=== PATIENT | female | born 1945 | race Caucasian/White ===

== ENCOUNTER 2021-01-16 10:59 | Inpatient (IN) | payer OTHER ==
--- OUTSIDE RECORDS SUMMARY | 2021-01-16 11:01 | XMS REPORT | Continuity of Care Document ---
:1945 Author Organization [facility] t Address [address] [place] [address] Care Team Providers Name Role Phone OKPALA Attending Clinician Unavailable Problems Condition Condition Condition Status Onset Resolution Last Treating Co mments Source Name Details Category Date Date Treatment Clinician Date Palpitatio Palpitatio Problem Active [facility] n [facility] [place] [facility] History of History of Problem Resolve [facility] arthritis arthritis d [facility] [place] [facility] Acute Acute Problem Active Univers right MCA right MCA ity of stroke stroke [place] [facility] Essential Essential Problem Active Uni vers (primary) (primary) [place] hypert[place] [facility] Depression Depression Problem Active U nivers screen screen [facility] [place] [facility] Encounter Encounter Problem Active Uni vers for [place] examin[place] examin[place] Ph ysici n for n for ans other other mental mental health and health and behavioral behavioral disorders disorders Primary Primary Problem Active [facility] osteoarthr osteoarthr Felicita kes - itis itis Memoria involving involving l multiple multiple Outpat i joints joints ent Clinics Bilateral Bilateral Problem Active [facility] primary primary [facility] - osteoarthr osteoarthr Me moria itis of itis of l knee knee Outpati ent Clinics Dupuytren' Dupuytren' Problem Active [facility] - contractur contractur Me moria e of left e of left l hand hand Outpati ent Clinics Arthritis Arthritis Problem Active [facility] - Memoria l [facility]pat[facility] ent Clinics Cigarette Cigarette Diagnosis Active [facility] nicotine nicotine [facility] - dependence dependence Me moria without without l complicati complicati Ou tpati on on ent Clinics Seasonal Seasonal Problem Active [facility] allergic allergic [facility] - rhinitis, rhinitis, Sandip ashlee unspecifie unspecifie l d trigger d trigger Outp ati ent Clinics Blood Blood Diagnosis Active [facility] tests for tests for Luke s - routine routine Memoria general general l physical physical Outpat i examinatio examinatio en t n n Clinics Breast Breast Diagnosis Active [facility] screening screening Luke s - declined declined Memori a l [facility] Pneumococc Pneumococc Diagnosis Active [facility] al al [facility] - vaccinatio vaccinatio Me moria n declined n declined l [facility] Tobacco Tobacco Diagnosis Active [facility] abuse abuse [facility] - counseling counseling [facility] Allergies, Adverse Reactions, Alerts Allergy Allergy Status Severity Reaction(s) Onset Inactive Treating Comm ents Source Name Type Date Date Clinician Penicill Allergy Active Univers ins to drug ity of (finding [place] ) Physici ans penicill Adverse Active rash/hives [facility] in Reaction [facility] Medications Ordered Filled Start Stop Current Ordering Indication Dosage Frequency Signature Comments Components Source Medication Medication Date Date Medication? Clinician (SIG) Name Name Atorvastati Atorvastati Yes TAKE 1 Univers n Calcium n Calcium 4-19 TABLET BY ity of 80 MG Oral 80 MG Oral 00:00: MOUTH AT [place] Tablet Tablet 00 BEDTIME Physici ans Aspirin 81 Aspirin 81 Yes TAKE ONE Univers MG Oral MG Oral 4-19 TABLET BY ity of Tablet Tablet 00:00: MOUTH [place] Delayed Delayed 00 DAILY Physici Release Release ans Vicodin Vicodin Yes Na [place] [address] as needed [facility] Vital Signs Vital Name Observation Time Observation Value Comments Source Body height 2020-12-25 66 [in_us] [facility] :22:00 [place] [facility] s Weight 2020-12-25 149 [lb_av] [facility] :22: [place] [facility] s Body mass index 2020-12-25 24.05 kg/m2 [place] o f (BMI) [Ratio] 10:22:00 [place] Physicia ns Body temperature 2020-12-25 97.2 [degF] Method: [facility] 10:22:00 [facility] Physician s Heart Rate 2020-12-25 64 /min [facility] :22:00 [place] Physician s Respiratory rate 2020-12-25 18 /min [facility] 10:22:00 [place] Physician s O2 SAT 2020-12-25 99 % [facility] 10:22:00 [place] [facility] s Systolic blood 2020-12-25 129 mm[Hg] Location: [facility] 10:22:00 Position: [place] Physician s Sitting Diastolic blood 2020-12-25 78 mm[Hg] Location: [facility]; [facility] 10:22:00 Position: [place] Physician s Sitting Procedures Procedure Date / Time Performed Performing Clinician Ileana e [N] 30 Day Event 2020-12-26 00:00:00 [facility] Monitor Recording Physicians Plan of Care Planned Activity Planned Date Details Comments Source Diagnostic Test 2020-12-26 [N] 30 Day Event [facility] Pending 00:00:00 Monitor Recording Physicians [code = [N] 30 Day Event Monitor Recording] Encounters Start End Encounter Admission Attending Care Care Encounter Source Date/Time Date/Time Type Type Clinicians Facility Department ID 2020-12-25 2020-12-25 Appointmen ONELIA KAHN Neurology - [id number] [facility] 10:30:00 10:30:00 t; [facility]AHN [place] [facility] 2019-08-24 2019-08-24 [facility] [id number] [facility] 11:00:00 11:00:00 [facility] 2019-08-16 2019-08-16 [facility] [id number] [facility] 16:37:00 16:37:00 [employer] [facility] 2019-05-25 2019-05-25 [facility] [id number] [facility] 10:20:00 10:20:00 [employer] [facility] Results This patient has no known results.
--- NOTE | 2021-01-16 12:07 | RAD REPORT ---
EXAM DESCRIPTION: CT - Head C Spine Mpr Wo Con - 01/16/2021 11:39 am CLINICAL HISTORY: Confusion. Head and neck pain COMPARISON: None. TECHNIQUE: Computed axial tomography of the head and cervical spine was obtained. Sagittal and coronal reconstruction was performed. All CT scans are performed using dose optimization technique as appropriate and may include automated exposure control or mA/KV adjustment according to patient size. FINDINGS: 5 centimeter low-density area within right temporal lobe has the appearance of an old infa rction. An intracranial bleed is not seen. The ventricles are normal in caliber. An extra-axial fluid collect ion is not noted.Fluid within the visualized sinuses and mastoids is not seen The patient's head is tilted towards the right. Slight posterior subluxation C3 on C4. Spondylosis involves the mid distal cervical spine resulting m arked right foraminal stenosis C3-4 and moderate foraminal stenosis at several additional levels. Mil d central spinal stenosis A cervical fracture is not visualized. No dislocation is noted. IMPRESSION: No acute intracranial abnormality is seen. A cervical fracture is not visualized. Spondylosis. If the patient continues to have symptoms to suggest intracranial /spinal cord pathology then MRI wou ld be recommended
--- NOTE | 2021-01-16 12:20 | RAD REPORT ---
EXAM DESCRIPTION: Harjit Single View01/16/2021 12:11 pm CLINICAL HISTORY: Chest pain COMPARISON: none FINDINGS: The lungs appear clear of acute infiltrate. The heart is normal size IMPRESSION: No acute abnormalities displayed
[2021-01-16 13:25] LABS: Urine Blood 1+ (Negative); Urine Glucose Negative (Negative); Urine Protein 1+ (Negative); Urine Specific Gravity >=1.030 (1.005-1.030); Urine pH 5.5 (5.0-7.0)
--- NOTE | 2021-01-16 14:41 | RAD REPORT ---
EXAM DESCRIPTION: CT - Chest Abdomen Pelvis W Cont - 01/16/2021 2:19 pm CLINICAL HISTORY: TRAUMA, chest pain, abdominal pain chest COMPARISON: No comparisons TECHNIQUE: Following dynamic enhancement using 100 milliliters nonionic IV contrast, axial imaging o f the chest, abdomen and pelvis was performed. Biphasic technique was utilized through the abdomen. No oral contrast was administered. All CT scans are performed using dose optimization technique as appropriate and may include automated exposure control or mA/KV adjustment according to patient size. FINDINGS: Lungs are clear of mass and infiltrate. Subpleural scarring changes are present. No pleura l effusion, pleural thickening or pneumothorax. No significant aortic or pulmonary arterial tree find ing. Mediastinal and hilar regions show no mass or abnormal lymphadenopathy. No chest wall mass or ax illary lymphadenopathy. The liver, spleen and pancreas show no suspicious findings. Gallbladder and biliary tree are unremark able. Gallstones can be occult on CT imaging. Symmetric renal function is seen with no mass or hydro nephrosis. No adrenal abnormalities. No urinary bladder acute finding. No dilated bowel loops or focal bowel wall thickening. No acute GI findings seen. Disc and bone degenerative changes are present. No acute fracture changes confirmed. No significant vascular findings. IMPRESSION: CT chest, abdomen and pelvis imaging shows no acute or emergent finding.
[2021-01-16 14:50] LABS: Absolute Lymphocytes (CBC) 1.4 K/uL (0.7-4.9); Basophils % 0.3 % (0-1.3); Hematocrit 47.5 % (36.0-45.0); MPV 9.8 fL (7.6-11.3); RBC Red Blood Cell Count 5.17 M/uL (3.86-4.86)
[2021-01-16 14:51] LABS: Protime INR 1.01
[2021-01-16 15:08] LABS: Bilirubin Direct 0.3 mg/dL (0-0.2); Bilirubin Total 0.8 mg/dL (0.2-1.0); Magnesium 2.5 mg/dL (1.8-2.4); Potassium 3.8 mmol/L (3.5-5.1); Protein, Total 8.1 g/dL (6.4-8.2); Troponin (Emerg Dept Use Only) 0.06 ng/mL (0.0-0.045)
[2021-01-16] MEDS ORDERED: NA CHLORIDE 0.9% 500 ML ONE (15:44)
--- NOTE | 2021-01-16 16:16 | P.HP ---
Certification for Inpatient Patient admitted to: Inpatient With expected LOS: >2 Midnights Practitioner: I am a practitioner with admitting privileges, knowledge of patient current condition, hospital course, and medical plan of care. 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 Was brought in to ER today, found awake on floor at home. Friend has been trying to get a hold of patient since Friday with no luck. Friend called police for wellfare check and patient was found on floor. Presumed to be on floor since Friday/Friday. Patient is oriented x3, however has some confusion and unable to recall events. She does not recall how she fell or can give specific details over the last 2-3 days. She reports pain in her knees (chronic) and neck. She denies any recent illness, no fever, no cough, no SOB, no dysuria, no diarrhea. She reports some constipation - no BM in ~3-4 days. She was reportedly discharged to rehab ~4-5 weeks ago, and signed herself out AMA due to being "bored". Patient appears dehydrated on exam. Bloodwork notable for leukocytosis and elevated hemoglobin (17.5, 15.7,respectively), Cr: 0.99, CPK: 1988, trop: 0.06, BNP 1361, Urine dip negative for infection, +blood, micro pending. CXR and CT chest/abd/pelvis rather unremarkable. CT head/c-spine notable for prior infarct. - Past Medical/Surgical History -: Knee arthritis -: recent CVA ~5wks ago, L weakness -: - Family History Family History: Reviewed- Non-Contributory - Social History Smoking Status: Current every day smoker Alcohol use: Yes Place of Residence: Home Review of Systems 10-point ROS is otherwise unremarkable Physical Examination - Physical Exam General: Alert, Oriented x3, Cooperative, Mild distress, Confused (makes sense during most of interview, but occasionally seems to answer inappropriately) HEENT: PERRLA, Other (dry mucous membranes), EOMI, Sclerae nonicteric Neck: Supple, No LAD Respiratory: Clear to auscultation bilaterally, Normal air movement Cardiovascular: No edema, Regular rate/rhythm Gastrointestinal: Soft and benign, Non-distended, No tenderness Musculoskeletal: No tenderness Integumentary: Other (superficial abrasion and ecchymosis noted at R posterior leg and L shoulder) Neurological: Sensation intact, Other (L facial droop, difficult closing L eyelid), Abnormal strength (4-/5 on R extremities, 3/5 LUE/LLE, 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) - Studies Laboratory Data (last 24 hrs) 01/16/21 14:05: PT 11.6, INR 1.01 01/16/21 14:05: WBC 17.50 H, Hgb 15.7 H, Hct 47.5 H, Plt Count 317 01/16/21 14:05: Sodium 145, Potassium 3.8, BUN 18, Creatinine 0.99, Glucose 126 H, Magnesium 2.5 H, Total Bilirubin 0.8, AST 84 H, ALT 36, Alkaline Phosphatase 75 Assessment and Plan - Advance Directives Does patient have a Living Will: No Does patient have a Durable POA for Healthcare: No Physician Review Additional Text: Problem List unwitnessed Fall Acute encephalopathy, likely metabolic 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,LUE,LLE) Rhabdomyolysis b/l knee arthritis -difficult to obtain / confirm accurate HPI/med history -no acute findings on imaging, labs appear patient is heme concentrated due to dehydration / on floor for a few days -elevated CPK, renal function ok -will place gonzales for accurate I/O's -IVF @150ml/hr, monitor volume status closely , pt denies cardiac history -monitor renal function, consult nephrology if necessary -will obtain MRI brain to r/o any new stroke, pt with R sided weakness - states this can happen "sometimes" -PT and speech therapy consulted -lovenox for DVT prophylaxis -will likely need SNF/rehab on discharge -urine pending to r/o infection -monitor on telemetry VTE: lovenox Code: full Dispo: anticipate hospitalization ~2-3 days, likely will need snf/rehab Time Spent Managing Pts Care (In Minutes): 70
[2021-01-16 16:31] LABS: Urine Blood Trace-intact (Negative); Urine Glucose Negative (Negative); Urine Protein 1+ (Negative); Urine Specific Gravity >=1.030 (1.005-1.030); Urine pH 5.5 (5.0-7.0)
[2021-01-16] MEDS ORDERED: NA CHLORIDE 0.9% 1,000 ML ONE (18:02)
--- NOTE | 2021-01-16 18:10 | RAD REPORT ---
EXAM DESCRIPTION: MRI - Brain W/Wo Cont - 01/16/2021 5:42 pm CLINICAL HISTORY: h/o CVA 5 weeks ago, no R weakness COMPARISON: MRA Head Wo Cont dated 01/16/2021; MRA Neck W/Wo Cont dated 01/16/2021; Head C Spine Mpr W o Con dated 01/16/2021 TECHNIQUE: Sagittal and axial T1-weighted images were obtained. Axial PD/heavily T2-weighted and T2- FLAIR images were obtained along with axial DWI/ADC mapping sequences. Coronal heavily T2 weighted s equence obtained. Axial and coronal post-contrast T1-weighted images were also obtained. A 16 ml Mul tihance contrast following utilized. FINDINGS: No intracranial hemorrhage identified. Mild to moderate underlying atrophy changes are pre sent. Ventricles are in proportion to any volume loss. Diffusion-weighted imaging shows hyperintense signal in the deep periventricular white matter posterior right frontal lobe. There is a extensive di ffusion signal abnormality in the right parietal lobe from cortical margin to the deep periventricula r white matter. Heterogeneous diffusion signal extends into the posterior aspect of the right tempora l lobe. There is corresponding increased signal on ADC mapping. This subacute infarction pattern does not clearly demonstrate an acute component. Baseline chronic ischemic pattern for the patient is louis y minimal. There is no edema or shift of midline structures. No extra-axial fluid collections. Paulino-m atter/white matter junction is preserved. Signal voids are seen as a normal finding in the major int racranial vessels. There are old infarction changes in the right parietal lobe as well. Post-contrast view show a serpiginous cortical enhancement pattern in the area of subacute infarction . This is expected pattern based on the provided history. Mastoid air cells and paranasal sinuses are clear. No sella or supra sella abnormality. IMPRESSION: Subacute and chronic nonhemorrhagic infarction changes involving the right cerebral gabe sphere as detailed. No new acute component identified. No developing edema or mass effect.
--- NOTE | 2021-01-16 18:13 | RAD REPORT ---
EXAM DESCRIPTION: MRI - MRA Head Wo Cont - 01/16/2021 5:41 pm CLINICAL HISTORY: CVA, new stroke-like symptoms COMPARISON: CT head same date, MRI brain same date TECHNIQUE: Axial and coronal 3D [id number] image acquisition was performed. 3D rotational images were generated with source and reconstruction images reviewed. Horizontal and vertical axis rotation al views generated using MIP protocol. FINDINGS: Basilar artery shows no suspicious finding. Distal left vertebral artery is unremarkable. The right vertebral artery terminates at the posteroinferior cerebellar artery. Moderate severity ath erosclerotic changes are present with luminal narrowing in the bilateral posterior cerebral artery di stributions. Moderate severity left middle cerebral atherosclerotic changes are present. There is randell ncation of multiple M2 and M3 branches of the right middle cerebral artery. This would match with the areas of right cerebral hemisphere infarction. No significant anterior cerebral artery disease. The A1 segment of the right anterior cerebral artery is very small suspected to be normal variant. No significant distal Internal carotid abnormality. 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 This would match the large areas of infarction in the right middle cerebral artery distribution. No significant disease of the basilar artery or distal internal carotid arteries.
--- NOTE | 2021-01-16 18:15 | RAD REPORT ---
EXAM DESCRIPTION: MRI - MRA Neck W/Wo Cont - 01/16/2021 5:42 pm CLINICAL HISTORY: Right-sided CVA. New stroke-like symptoms COMPARISON: None. TECHNIQUE: Axial and coronal 3D [id number] image acquisition was performed. 3D rotational images were generated with source and reconstruction images reviewed. Horizontal and vertical axis rotation al views generated using MIP protocol. FINDINGS: Aortic arch is 3 vessel configuration with no origins stenosis. Vertebral artery origins a re poorly visualized due to motion artifact. Motion limits the proximal right common carotid artery a ssessment. Significant disease is doubtful. Left common carotid artery is unremarkable. The bilateral internal carotid arteries are mildly tortuous but show no significant disease. Left vertebral artery is dominant with the right vertebral artery terminating at the posteroinferior cerebellar artery. No acute vertebral finding. IMPRESSION: MRA neck examination as detailed shows no significant finding.
[2021-01-16 18:36] LABS: Urine Amorphous Sediment 1+ /HPF (NONE SEEN); Urine Bacteria 20-50 /HPF (<20); Urine RBC <5 /HPF (NONE SEEN)
[2021-01-16] MEDS: NA CHLORIDE 0.9% 1,000 ML IV SCH (21:38)
--- NOTE | 2021-01-16 21:47 | ER ---
Nurse's Notes [facility] Name: Nasir Khan Age: 76 yrs Sex: Female : 1945 Arrival Date: 01/16/2021 Time: 11:16 Bed 16 Private MD: Diagnosis: Altered mental status, unspecified;Fall from other furniture;Rhabdomyolysis Presentation: 01/16 11:33 Chief complaint: EMS states: Fall, AMS. Coronavirus screen: Client denies travel out of kg the [place] in the last 14 days. Ebola Screen: Patient negative for fever greater than or equal to 101.5 degrees Fahrenheit, and additional compatible Ebola Virus Disease symptoms Patient denies exposure to infectious person. Patient denies travel to an Ebola-affected area in the 21 days before illness onset. Initial Sepsis Screen: Does the patient meet any 2 criteria? Altered Mental Status. HR > 90 bpm. Yes Does the patient have a suspected source of infection? No. Patient's initial sepsis screen is negative. Risk Assessment: Do you want to hurt yourself or someone else? Patient reports no desire to harm self or others. Onset of symptoms is unknown. 11:33 Method Of Arrival: EMS: [facility] kg 11:33 Acuity: MACK 3 kg Triage Assessment: 11:35 General: Appears unkempt, clothes are soaked in urine. . Behavior is calm, cooperative, kg quiet, Smells of urine. Pain: Complains of pain in right leg and left leg Pain currently is 8 out of 10 on a pain scale. at worst was 10 out of 10 on a pain scale. level that patient reports is acceptable is 3 out of 10 on a pain scale. Quality of pain is described as aching. EENT: Eyes with exudate noted from right upper eyelid, right outer canthus, outer aspect of conjuctiva of right eye, iris of right eye, inner aspect of conjuctiva of right eye, right lower eyelid, left upper eyelid, left outer canthus, outer aspect of conjuctiva of left eye, iris of left eye, inner aspect of conjunctiva of left eye, left inner canthus and left lower eyelid Right eye matted shut, corner of left eye red and swollen appears to have hit it during call.. Neuro: Level of Consciousness is awake, alert, confused, Oriented to person, place, situation, Wheat Shipper are weak on left Weakness in left Pt had previous stroke with left sided deficits. . Cardiovascular: No deficits noted. Heart tones S1 S2. Respiratory: No deficits noted. Airway is patent Breath sounds are clear bilaterally. GI: No deficits noted. : incontent. Derm: Skin is fragile, is thin, with poor turgor has skin tears on Right inner thigh, Left shoulder, Left corner of eye. DTI to left hip that is closed. Musculoskeletal:. Historical: - Allergies: 11:35 PENICILLINS; kg - PMHx: 11:35 CVA; kg - Immunization history:: Unknown. - Social history:: Smoking status: unknown Patient uses alcohol, occasionally. admits to "couple of beers" a day. Screenin:28 Abuse screen: Denies threats or abuse. Nutritional screening: No deficits noted. kg Tuberculosis screening: No symptoms or risk factors identified. Fall Risk Fall in past 12 months (25 points). Secondary diagnosis (15 points) CVA, IV access (20 points). Ambulatory Aid- Crutches/Cane/Walker (15 pts). Gait- Impaired (20 pts.). Mental Status- Overestimates/Forgets Limitations (15 pts.). Total Rodriguez Fall Scale indicates High Risk Score (45 or more points). Fall prevention measures have been instituted. Side Rails Up X 2 Placed Close to Nursing Station Frequent Obs/Assessments Occuring Family Present and informed to notify staff if the need to leave the bedside As available patient and family educated on Fall Prevention Program and Strategies. Assessment: 11:42 Reassessment: See triage assessment. kg 12:34 Reassessment: Patients only contact is Manju Nelson a friend that checks on her. Manju wilson is the one that called the firmware architect to do a welfare check on the patient since she hadn't talked to her since Friday when she visited her. Manju stated that she was at [facility] when she decided to leave [place] and live at home by herself. She stated she also received the jade and allen covid vaccine there around December 18. Manju's number is [phone]. 19:30 Reassessment: Patient appears in no apparent distress at this time. Patient and/or ad1 family updated on plan of care and expected duration. Pain level reassessed. Patient is alert, oriented x 3, equal unlabored respirations, skin warm/dry/pink. General: Behavior is calm, cooperative. Pain: Denies pain. Neuro: Oriented to person, place, hallucinations noted.. Cardiovascular: Heart tones S1 S2. Respiratory: Airway is patent Trachea midline. GI: No signs and/or symptoms were reported involving the gastrointestinal system. : No signs and/or symptoms were reported regarding the genitourinary system. Musculoskeletal: weakness noted, limited rom to lower extremities Injury Description: bruising noted to L shoulder and face. 20:30 Reassessment: Patient appears in no apparent distress at this time. No changes from ad1 previously documented assessment. Patient and/or family updated on plan of care and expected duration. Pain level reassessed. Patient is alert, oriented x 3, equal unlabored respirations, skin warm/dry/pink. Vital Signs: 11:33 BP 145 / 94; Pulse 103; Resp 17; Temp 97.9(O); Pulse Ox 99% on R/A; Weight 72.57 kg; kg Height 5 ft. 6 in. (167.64 cm); 12:30 BP 161 / 97; Pulse 81; Resp 30; Pulse Ox 97% on R/A; kg 13:30 BP 159 / 91; Pulse 92; Resp 25; Pulse Ox 97% on R/A; kg 14:30 BP 167 / 84; Pulse 83; Resp 24; Pulse Ox 96% on R/A; kg 15:30 BP 165 / 86 RA Supine (auto/reg); Pulse 81; Resp 21; Pulse Ox 97% on R/A; kg 16:30 BP 151 / 85; Pulse 81; Resp 22; Pulse Ox 81% on R/A; kg 17:30 BP 159 / 90; Pulse 82; Resp 24; Pulse Ox 98% on R/A; kg 18:30 BP 143 / 79; Pulse 79; Resp 22; Pulse Ox 97% on R/A; kg 18:30 BP 139 / 81; Pulse 78; Resp 24; Pulse Ox 96% on R/A; kg 19:30 BP 130 / 83; Pulse 80; Resp 18; Pulse Ox 97% ; ad1 20:30 BP 147 / 85; Pulse 82; Resp 18; Pulse Ox 95% ; ad1 21:29 BP 148 / 88; Pulse 84; Resp 18; Pulse Ox 95% ; ad1 11:33 Body Mass Index 25.82 (72.57 kg, 167.64 cm) kg ED Course: 11:16 Patient arrived in ED. am2 11:18 Jazmin Freedman [facility]-C [facility]. kb 11:18 Rafita Bay MD is Attending Physician. kb 11:33 Danyelle Amos is Primary Nurse. kg 11:35 Triage completed. kg 11:39 CT Head C Spine In Process Unspecified. EDMS 12:11 XRAY Chest (1 view) In Process Unspecified. EDMS 12:20 Inserted saline lock: 20 gauge in left antecubital area, using aseptic technique. kg 12:27 Lactate Sent. kg 12:27 Procalcitonin Sent. kg 12:27 Procalcitonin Sent. kg 12:27 Lactate Sent. kg 12:27 Basic Metabolic Panel Sent. kg 12:27 CBC with Diff Sent. kg 12:27 Magnesium Sent. kg 12:27 LFT's Sent. kg 12:28 NT PRO-BNP Sent. kg 12:28 PT-INR Sent. kg 12:28 Troponin (emerg Dept Use Only) Sent. kg 12:28 Patient has correct armband on for positive identification. Allergy band placed. Fall kg risk band placed. Placed in gown. Bed in low position. Call light in reach. Side rails up X2. 14:20 CT Chest, Abdomen, Pelvis - W/Contrast In Process Unspecified. EDMS 15:27 Jameson Bay MD is Hospitalizing Provider. kb 17:42 MRA Head Wo Cont In Process Unspecified. EDMS 17:42 Brain W/Wo Cont In Process Unspecified. EDMS 17:42 MRA Neck W/Wo Cont In Process Unspecified. EDMS 05 02:52 No provider procedures requiring assistance completed. Patient admitted, IV remains in ad1 place. 02:55 Arm band placed on. ad1 Administered Medications: 01/16 15:47 Drug: NS 0.9% 500 ml Route: IV; Rate: bolus; Site: left antecubital; kg 16:18 Follow up: IV Status: Completed infusion; IV Intake: 500ml kg 16:19 Follow up: Response: No adverse reaction kg 17:00 Follow up: Response: No adverse reaction; IV Status: Completed infusion; IV Intake: kg 500ml 17:45 Follow up: Response: No adverse reaction; IV Intake: 500ml kg 18:00 Drug: NS 0.9% 1000 ml Route: IV; Rate: 125 ml/hr; Site: left antecubital; kg 18:52 Follow up: Response: No adverse reaction kg Intake: 16:18 IV: 500ml; Total: 500ml. kg 17:00 IV: 500ml; Total: 1000ml. kg 17:45 IV: 500ml; Total: 1500ml. kg Outcome: 15:27 Decision to Hospitalize by Provider. kb 21:30 Admitted to Med/surg accompanied by tech, via stretcher. ad1 21:30 Condition: stable 21:30 Instructed on report given to MIGUEL ANGEL Ni 21:46 Patient left the ED. ad1 Signatures: Dispatcher [employer] EDJazmin García FNP-C FNP-Darleen Palmer RN RN ad1 Violeta Ely am2 Danyelle Amos kg Corrections: (The following items were deleted from the chart) 21:29 21:29 Reassessment: Patient appears in no apparent distress at this time. No changes ad1 from previously documented assessment. Patient and/or family updated on plan of care and expected duration. Pain level reassessed. Patient is alert, oriented x 3, equal unlabored respirations, skin warm/dry/pink. ad1 21:29 20:30 BP 148 / 88; Pulse 84bpm; Resp 18bpm; Pulse Ox 95%; ad1 ad1
--- NOTE | 2021-01-16 21:47 | EDPHYS ---
Physician Documentation [facility] Name: Nasir Khan Age: 76 yrs Sex: Female : 1945 Arrival Date: 01/16/2021 Time: 11:16 Bed 16 Private MD: ED Physician Rafita Bay HPI: 01/16 15:46 This 76 yrs old Female presents to ER via EMS with complaints of Fall, AMS. kb 16:57 The patient presents with confusion. Onset: The symptoms/episode began/occurred today. kb Possible causes: CVA or TIA, fell off couch on Friday or Friday and couldn't get up. Associated signs and symptoms: Pertinent positives: confusion. Unable to obtain HPI due to altered mental status. It is unknown whether or not the patient has had similar symptoms in the past. CVA 5 weeks ago, treated at [facility]. Friend states she hasn't talked to pt since Friday or Friday. States she had been calling, but not getting through so today when she called and the voicemail box was full she knew something was wrong. Friend called the police to do a welfare check and pt was found on the floor. Pt states she had a beer, slipped off the couch and couldn't get back up. Pt understands and responds to some questions, but doesn't seem to understand others. Pt states she had a stroke 5 weeks ago. Friend reports pt signed herself out of the senior living that she went to after the stroke. Pt has residual left sided weakness, but normally gets around with shuffling gait per friend.. Historical: - Allergies: 11:35 PENICILLINS; kg - PMHx: 11:35 CVA; kg - Immunization history:: Unknown. - Social history:: Smoking status: unknown Patient uses alcohol, occasionally. admits to "couple of beers" a day. ROS: 16:54 MS/Extremity: Negative for injury and deformity, Neuro: Negative for headache, kb weakness, numbness, tingling, and seizure. 16:54 Unable to obtain ROS due to patient's inability to understand questions, pt understands some questions, but not all. Pt denies any other symptoms in ROM. Exam: 15:38 Cardiovascular: Regular rate and rhythm with a normal S1 and S2. No gallops, murmurs, kb or rubs. No pulse deficits. Respiratory: Respirations even and unlabored. No increased work of breathing, no retractions or nasal flaring. Abdomen/GI: Soft, non-tender. No distention Skin: Warm, dry with normal turgor. Normal color. 15:38 Constitutional: The patient appears alert, awake. 15:38 Musculoskeletal/extremity: Extremities: grossly normal except: noted in the anterior aspect of left shoulder: ecchymosis, ROM: no acute changes, Circulation is intact in all extremities. 15:38 Neuro: Orientation: to person, situation, Mentation: confused. 15:38 Psych: Behavior/mood is pleasant, Affect is calm, Oriented to person. Vital Signs: 11:33 BP 145 / 94; Pulse 103; Resp 17; Temp 97.9(O); Pulse Ox 99% on R/A; Weight 72.57 kg; kg Height 5 ft. 6 in. (167.64 cm); 12:30 BP 161 / 97; Pulse 81; Resp 30; Pulse Ox 97% on R/A; kg 13:30 BP 159 / 91; Pulse 92; Resp 25; Pulse Ox 97% on R/A; kg 14:30 BP 167 / 84; Pulse 83; Resp 24; Pulse Ox 96% on R/A; kg 15:30 BP 165 / 86 RA Supine (auto/reg); Pulse 81; Resp 21; Pulse Ox 97% on R/A; kg 16:30 BP 151 / 85; Pulse 81; Resp 22; Pulse Ox 81% on R/A; kg 17:30 BP 159 / 90; Pulse 82; Resp 24; Pulse Ox 98% on R/A; kg 18:30 BP 143 / 79; Pulse 79; Resp 22; Pulse Ox 97% on R/A; kg 18:30 BP 139 / 81; Pulse 78; Resp 24; Pulse Ox 96% on R/A; kg 19:30 BP 130 / 83; Pulse 80; Resp 18; Pulse Ox 97% ; ad1 20:30 BP 147 / 85; Pulse 82; Resp 18; Pulse Ox 95% ; ad1 21:29 BP 148 / 88; Pulse 84; Resp 18; Pulse Ox 95% ; ad1 11:33 Body Mass Index 25.82 (72.57 kg, 167.64 cm) kg MDM: 11:21 Patient medically screened. kb 15:37 Data reviewed: vital signs, nurses notes. Data interpreted: Pulse oximetry: on room air kb is 99 %. Interpretation: normal. Counseling: I had a detailed discussion with the patient and/or guardian regarding: the historical points, exam findings, and any diagnostic results supporting the discharge/admit diagnosis, lab results, radiology results, the need for further work-up and treatment in the hospital. 15:37 Physician consultation: Jameson Bay MD was contacted at 15:37, regarding admission, kb to the telemetry unit. patient's condition, and will see patient in ED. 01/16 11:19 Order name: Basic Metabolic Panel 01/16 11:19 Order name: CBC with Diff 01/16 11:19 Order name: LFT's 01/16 11:19 Order name: Magnesium 01/16 11:19 Order name: NT PRO-BNP 01/16 11:19 Order name: PT-INR 01/16 11:19 Order name: Troponin (emerg Dept Use Only) 01/16 11:19 Order name: CPK 01/16 11:20 Order name: Basic Metabolic Panel [facility] 01/16 11:20 Order name: CBC with Automated Diff; Complete Time: 14:56 [facility] 01/16 11:20 Order name: Liver (Hepatic) Function [facility] 01/16 11:20 Order name: Magnesium [facility] 01/16 11:20 Order name: NT PRO-BNP [facility] 01/16 11:20 Order name: Protime (+INR); Complete Time: 14:56 [facility] 01/16 11:19 Order name: CT Head C Spine; Complete Time: 12:09 01/16 11:19 Order name: XRAY Chest (1 view); Complete Time: 12:22 01/16 11:20 Order name: Troponin (Emerg Dept Use Only) [facility] 01/16 11:51 Order name: Lactate 01/16 11:51 Order name: Procalcitonin 01/16 11:52 Order name: Lactate; Complete Time: 15:15 [facility] 01/16 11:52 Order name: Procalcitonin; Complete Time: 16:45 [facility] 01/16 13:25 Order name: Urine Dipstick-Ancillary; Complete Time: 13:29 [facility] 01/16 13:31 Order name: CT Chest, Abdomen, Pelvis - W/Contrast; Complete Time: 14:46 kb 01/16 15:26 Order name: Urine Microscopic Only; Complete Time: 18:38 kb 01/16 16:30 Order name: Urine Dipstick-Ancillary; Complete Time: 16:35 EDAL 01/16 16:42 Order name: COVID-19 : Document "Date of Symptom Onset" if Symptomatic. aa5 01/16 16:58 Order name: MRA Head Wo Cont; Complete Time: 18:22 EDAL 01/16 19:01 Order name: Lactate Sepsis 2 HR Follow-up [facility] 01/16 20:10 Order name: SARS-COV-2 RT PCR EDAL 01/16 11:19 Order name: EKG; Complete Time: 11:20 kb 01/16 11:19 Order name: Cardiac monitoring; Complete Time: 12:27 kb 01/16 11:19 Order name: EKG - Nurse/Tech; Complete Time: 12:27 kb 01/16 11:19 Order name: IV Saline Lock; Complete Time: 12:27 kb 01/16 11:19 Order name: Labs collected and sent; Complete Time: 12:27 kb 01/16 11:19 Order name: O2 Per Protocol; Complete Time: 12:27 kb 01/16 11:19 Order name: O2 Sat Monitoring; Complete Time: 12:27 kb 01/16 11:20 Order name: Straight Cath - Urine 01/16 11:20 Order name: Urine Dipstick-Ancillary (obtain specimen) 01/16 12:08 Order name: Labs - recollect needed: recollect all labs; Complete Time: 12:27 01/16 16:58 Order name: Brain W/Wo Cont; Complete Time: 18:13 EDAL 01/16 16:58 Order name: MRA Neck W/Wo Cont; Complete Time: 18:22 EDMS Administered Medications: 15:47 Drug: NS 0.9% 500 ml Route: IV; Rate: bolus; Site: left antecubital; kg 16:18 Follow up: IV Status: Completed infusion; IV Intake: 500ml kg 16:19 Follow up: Response: No adverse reaction kg 17:00 Follow up: Response: No adverse reaction; IV Status: Completed infusion; IV Intake: kg 500ml 17:45 Follow up: Response: No adverse reaction; IV Intake: 500ml kg 18:00 Drug: NS 0.9% 1000 ml Route: IV; Rate: 125 ml/hr; Site: left antecubital; kg 18:52 Follow up: Response: No adverse reaction kg Disposition: 01/17 19:07 Co-signature as Attending Physician, Rafita Bay MD. rn Disposition: 01/16/21 15:27 Hospitalization ordered by Jameson Bay for Inpatient Admission. Preliminary diagnosis are Altered mental status, unspecified, Fall from other furniture, Rhabdomyolysis. - Bed requested for Telemetry/MedSurg (Inpatient). - Status is Inpatient Admission. ad1 - Condition is Fair. - Problem is new. - Symptoms are unchanged. Signatures: Dispatcher [employer] EDMS Jazmin Freedman, MANAGER PRICING-C MANAGER PRICING-CkTatyana Goodrich Martha, RN RN Rafita Bay MD MD rn DelToro, Anna, RN RN ad1 Danyelle Amos kg Corrections: (The following items were deleted from the chart) 01/16 16:56 15:43 Unable to obtain ROS due to patient's inability to understand questions, Pt kb understands some questions, but not others. Pt denies any symptoms in ROS, kb 16:58 16:09 Stroke Protocol ordered. EDAL EDMS 20:26 15:27 Hospitalization Ordered by Jameson Bay MD for Inpatient Admission. Preliminary mw diagnosis is Altered mental status, unspecified; Fall from other furniture; Rhabdomyolysis. Bed requested for Telemetry/MedSurg (Inpatient). Status is Inpatient Admission. Condition is Fair. Problem is new. Symptoms are unchanged. kb 21:46 20:26 01/16/2021 15:27 Hospitalization Ordered by Jameson Bay MD for Inpatient ad1 Admission. Preliminary diagnosis is Altered mental status, unspecified; Fall from other furniture; Rhabdomyolysis. Bed requested for Telemetry/MedSurg (Inpatient). Status is Inpatient Admission. Condition is Fair. Problem is new. Symptoms are unchanged. mw
[2021-01-16 22:16] VITALS: BMI 20.7
[2021-01-16 22:35] LABS: Thyroid Stimulating Hormone 0.727 uIU/mL (0.360-3.740)
[2021-01-16] MEDS ORDERED: PNEUMOCOCCAL VACCINE 0.5 ML IMVAC ONE (22:49)
[2021-01-17] MEDS: NA CHLORIDE 0.9% 1,000 ML IV SCH (02:03)
[2021-01-17 06:21] LABS: Absolute Lymphocytes (CBC) 1.6 K/uL (0.7-4.9); Basophils % 0.3 % (0-1.3); Hematocrit 37.7 % (36.0-45.0); Lymphocytes % 14.3 % (15.3-44.8); MPV 9.6 fL (7.6-11.3); RBC Red Blood Cell Count 4.08 M/uL (3.86-4.86)
[2021-01-17 06:53] LABS: ALT/SGPT 30 U/L (12-78); AST/SGOT 70 U/L (15-37); Alkaline Phosphatase 55 U/L (45-117); BUN Blood Urea Nitrogen 17 mg/dL (7-18); Bicarbonate 24 mmol/L (21-32); Bilirubin Total 0.7 mg/dL (0.2-1.0); Glucose Level 104 mg/dL (74-106); Magnesium 2.3 mg/dL (1.8-2.4); Phosphorus 2.6 mg/dL (2.5-4.9); Potassium 3.3 mmol/L (3.5-5.1); Protein, Total 6.3 g/dL (6.4-8.2); Sodium Level 147 mmol/L (136-145)
[2021-01-17 06:54] LABS: Creatine Phosphokinase 1455 U/L (26-192)
[2021-01-17] MEDS: ENOXAPARIN 40 MG/0.4 ML SQ SCH (07:41)
[2021-01-17] MEDS: ASPIRIN EC 81 MG TAB PO SCH (07:42)
[2021-01-17] MEDS: D5.45NS W/KCL 20MEQ 20 MEQ/1,000 ML BAG IV SCH ×2 (08:44→17:50)
[2021-01-17] MEDS ORDERED: POTASSIUM 25 MEQ EFFERV TAB PO ONE ×2 (09:00→18:00)
[2021-01-17] MEDS: Levofloxacin500mg IV 500 MG/100 ML BAG IV SCH (10:54)
[2021-01-17] MEDS: ACETAMINOPHEN 500 MG TAB PO PRN (11:03)
--- NOTE | 2021-01-17 14:47 | P.PN ---
Subjective Date of Service: 01/17/21 Chief Complaint: Rhabdomyolysis, Fall, AMS Subjective: Improving (feeling better, more energy / strength, but still very weak. states has nowhere to go. she spoke with her friend and would like to go to SNF/retirement if possible. Understands she requires assistance) Review of Systems 10-point ROS is otherwise unremarkable Physical Examination - Vital Signs Temperature: 97.7 F Blood Pressure: 145/63 Pulse: 93 Respirations: 19 Pulse Ox (%): 95 - Studies Laboratory Data (last 24 hrs) 01/16/21 14:05: PT 11.6, INR 1.01 01/16/21 14:05: WBC 17.50 H, Hgb 15.7 H, Hct 47.5 H, Plt Count 317 01/16/21 14:05: Sodium 145, Potassium 3.8, BUN 18, Creatinine 0.99, Glucose 126 H, Magnesium 2.5 H, Total Bilirubin 0.8, AST 84 H, ALT 36, Alkaline Phosphatase 75 Assessment & Plan Physician Review Additional Text: Physical Exam General: Alert, Oriented x3, Cooperative, NAD, weak voice HEENT: PERRL, dry mucous membranes, EOMI, Sclerae nonicteric Respiratory: Clear to auscultation bilaterally, Normal air movement Cardiovascular: No edema, Regular rate/rhythm Gastrointestinal: Soft and benign, Non-distended, No tenderness Musculoskeletal: No tenderness Integumentary: superficial abrasion and ecchymosis noted at R posterior leg and L shoulder Neurological: Sensation intact, L facial droop, difficult closing L eyelid, Abnormal strength (4+/5 on R extremities, 3/5 LUE/LLE, good secondary set up man bilaterally R>L) Problem List unwitnessed Fall Acute encephalopathy, likely metabolic 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,LUE,LLE) Rhabdomyolysis b/l knee arthritis Hypernatremia -difficult to obtain / confirm accurate HPI/med history, even after speaking with friend; pt has no family -no acute findings on imaging, labs appear patient is heme concentrated due to dehydration / on floor for a few days -elevated CPK improving, renal function improving with IVF, will change to D5 1/2NS due to hypernatremia -gonzales for accurate I/O's, will dc tomorrow morning -MRI brain without any new acute findings, shows subacute stroke - consistent with what pt reports she was diagnosed ~5 weeks ago -continue aspirin, statin; med records requested for medication list / findings -PT and speech therapy consulted -lovenox for DVT prophylaxis -needs SNF/rehab on discharge, hopefully patient will qualify -monitor on telemetry -urine partially concerning for UTI, will cover empirically with levaquin for now, may have contributed to weakness/fall VTE: lovenox Code: full Dispo: anticipate hospitalization ~1-2 days, likely will need snf/rehab patient agreeable. PT consulted. SW/CM consulted Time Spent Managing Pts Care (In Minutes): 35
[2021-01-17] MEDS: TRAMADOL HCL 50 MG TAB PO PRN (17:04)
[2021-01-17] MEDS: ATORVASTATIN 40 MG TAB PO SCH (21:37)
[2021-01-18] MEDS: D5.45NS W/KCL 20MEQ 20 MEQ/1,000 ML BAG IV SCH ×3 (02:29→13:21)
[2021-01-18 04:31] LABS: Absolute Lymphocytes (CBC) 1.9 K/uL (0.7-4.9); Basophils % 0.4 % (0-1.3); Hematocrit 29.6 % (36.0-45.0); Lymphocytes % 24.5 % (15.3-44.8); MPV 10.1 fL (7.6-11.3); RBC Red Blood Cell Count 3.23 M/uL (3.86-4.86)
[2021-01-18 04:38] LABS: BUN Blood Urea Nitrogen 9 mg/dL (7-18); Bicarbonate 26 mmol/L (21-32); Creatine Phosphokinase 929 U/L (26-192); Glucose Level 113 mg/dL (74-106); Potassium 4.3 mmol/L (3.5-5.1); Sodium Level 140 mmol/L (136-145)
[2021-01-18] MEDS: ENOXAPARIN 40 MG/0.4 ML SQ SCH (08:33)
[2021-01-18] MEDS: ASPIRIN EC 81 MG TAB PO SCH (08:33)
[2021-01-18] MEDS: TRAMADOL HCL 50 MG TAB PO PRN (08:45)
[2021-01-18] MEDS: Levofloxacin500mg IV 500 MG/100 ML BAG IV SCH (10:44)
--- NOTE | 2021-01-18 16:16 | P.PN ---
Subjective Date of Service: 01/18/21 Chief Complaint: Rhabdomyolysis, Fall, AMS Subjective: Improving (slightly more energy, moving R extremities more, regaining some strength back no acute events overnight.) Review of Systems 10-point ROS is otherwise unremarkable Physical Examination - Vital Signs Temperature: 97.5 F Blood Pressure: 115/61 Pulse: 58 Respirations: 18 Pulse Ox (%): 97 Assessment & Plan Physician Review Additional Text: Physical Exam General: Alert, Oriented x3, Cooperative, NAD, weak voice, slow to talk HEENT: PERRL, EOMI, Sclerae nonicteric Respiratory: Clear to auscultation bilaterally, Normal air movement Cardiovascular: No edema, Regular rate/rhythm Gastrointestinal: Soft and benign, Non-distended, No tenderness Musculoskeletal: No tenderness Integumentary: superficial abrasion and ecchymosis at R posterior leg and L shoulder Neurological: Sensation intact, mild L facial droop, mild difficult closing L eyelid, Abnormal strength (4+/5 on R extremities, 3/5 LUE/LLE, good public address system installer bilaterally R>L) Problem List unwitnessed Fall Acute encephalopathy, likely metabolic 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,LUE,LLE) Rhabdomyolysis b/l knee arthritis Hypernatremia -difficult to obtain / confirm accurate HPI/med history, even after speaking with friend; pt has no family -no acute findings on imaging, labs appear patient is heme concentrated due to dehydration / on floor for a few days -elevated CPK improving, renal function improving with IVF, dc IVF -gonzales for accurate I/O's, dc when patient moving a little better, likely tomorrow -MRI brain without any new acute findings, shows subacute stroke - consistent with what pt reports she was diagnosed ~5 weeks ago -continue aspirin, statin; med records requested for medication list / findings -PT and speech therapy consulted -lovenox for DVT prophylaxis -needs SNF/rehab on discharge, hopefully patient will qualify -monitor on telemetry -urine partially concerning for UTI, will cover empirically with levaquin for now, may have contributed to weakness/fall. f/u culture VTE: lovenox Code: full Dispo: anticipate hospitalization ~1-2 days, likely will need snf/rehab, needs to work more with PT patient agreeable. PT consulted. SW/CM consulted Time Spent Managing Pts Care (In Minutes): 35
[2021-01-18] MEDS: ATORVASTATIN 40 MG TAB PO SCH (20:30)
[2021-01-18] MEDS: ONDANSETRON 4 MG/2 ML VIAL IV PRN (20:30)
[2021-01-19 06:12] LABS: Absolute Lymphocytes (CBC) 1.6 K/uL (0.7-4.9); Basophils % 0.9 % (0-1.3); Lymphocytes % 23.2 % (15.3-44.8); RBC Red Blood Cell Count 3.58 M/uL (3.86-4.86)
[2021-01-19 06:21] LABS: ALT/SGPT 29 U/L (12-78); Albumin 2.3 g/dL (3.4-5.0); Alkaline Phosphatase 44 U/L (45-117); BUN Blood Urea Nitrogen 6 mg/dL (7-18); Bicarbonate 28 mmol/L (21-32); Bilirubin Total 0.4 mg/dL (0.2-1.0); Creatine Phosphokinase 721 U/L (26-192); Glucose Level 96 mg/dL (74-106); Protein, Total 5.1 g/dL (6.4-8.2); Sodium Level 140 mmol/L (136-145)
[2021-01-19 06:22] LABS: AST/SGOT 59 U/L (15-37); Magnesium 1.8 mg/dL (1.8-2.4); Potassium 4.4 mmol/L (3.5-5.1)
[2021-01-19] MEDS: ENOXAPARIN 40 MG/0.4 ML SQ SCH (08:46)
[2021-01-19] MEDS: ASPIRIN EC 81 MG TAB PO SCH (08:46)
[2021-01-19] MEDS: FOLIC ACID 1 MG TABLET PO SCH (08:46)
[2021-01-19] MEDS ORDERED: MAGNESIUM SULFATE 1 gm IVPB 1 GM/100 ML BAG IV ONE (09:00)
[2021-01-19] MEDS: TRAMADOL HCL 50 MG TAB PO PRN (10:39)
[2021-01-19] MEDS: Levofloxacin500mg IV 500 MG/100 ML BAG IV SCH (10:49)
--- NOTE | 2021-01-19 17:33 | P.PN ---
Subjective Date of Service: 01/19/21 Chief Complaint: Rhabdomyolysis, Fall, AMS Subjective: Improving (doing well, more energy/strength, but still very weak, tolerating PO) Review of Systems 10-point ROS is otherwise unremarkable Physical Examination - Vital Signs Temperature: 97.1 F Blood Pressure: 103/59 Pulse: 57 Respirations: 18 Pulse Ox (%): 93 Assessment & Plan Physician Review Additional Text: Physical Exam General: Alert, Oriented x3, Cooperative, NAD, weak voice, slow to talk HEENT: PERRL, EOMI, Sclerae nonicteric Respiratory: Clear to auscultation bilaterally, Normal air movement Cardiovascular: No edema, Regular rate/rhythm Gastrointestinal: Soft and benign, Non-distended, No tenderness Musculoskeletal: No tenderness Neurological: Sensation intact, Abnormal strength (4+/5 on R extremities, 3/5 LUE/LLE, good php mysql developer bilaterally R>L) Problem List unwitnessed Fall Acute encephalopathy, likely metabolic, resolved 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,LUE,LLE) Rhabdomyolysis b/l knee arthritis Hypernatremia -no acute findings on imaging, labs appear patient is heme concentrated due to dehydration / on floor for a few days -elevated CPK improving, renal function improving with IVF, dc'd IVF on 01/18 -dc gonzales today -MRI brain without any new acute findings, shows subacute stroke - consistent with what pt reports she was diagnosed ~5 weeks ago -continue aspirin, statin; med records requested for medication list / findings -PT and speech therapy consulted -lovenox for DVT prophylaxis -monitor on telemetry -urine partially concerning for UTI, will cover empirically with levaquin for now, may have contributed to weakness/fall. f/u culture VTE: lovenox Code: full Dispo: SW/CM consulted for group home/SNF, apparently patient has been working on this just prior to admission as well Time Spent Managing Pts Care (In Minutes): 35
[2021-01-19] MEDS: ONDANSETRON 4 MG/2 ML VIAL IV PRN (20:32)
[2021-01-19] MEDS: ATORVASTATIN 40 MG TAB PO SCH (20:36)
[2021-01-20 04:21] LABS: BUN Blood Urea Nitrogen 8 mg/dL (7-18); Bicarbonate 29 mmol/L (21-32); Glucose Level 101 mg/dL (74-106); Magnesium 1.9 mg/dL (1.8-2.4); Sodium Level 140 mmol/L (136-145)
[2021-01-20] MEDS: ENOXAPARIN 40 MG/0.4 ML SQ SCH (08:59)
[2021-01-20] MEDS: ASPIRIN EC 81 MG TAB PO SCH (09:00)
[2021-01-20] MEDS: Levofloxacin500mg IV 500 MG/100 ML BAG IV SCH (09:00)
[2021-01-20] MEDS: FOLIC ACID 1 MG TABLET PO SCH (09:00)
--- NOTE | 2021-01-20 11:26 | P.PN ---
Subjective Date of Service: 01/20/21 Chief Complaint: Rhabdomyolysis, Fall, AMS Subjective: Improving (feeling strength return each day, no new complaints. with weakness and requiring assistance to feed self at times. working with PT) Review of Systems 10-point ROS is otherwise unremarkable Physical Examination - Vital Signs Temperature: 97 F Blood Pressure: 129/63 Pulse: 57 Respirations: 18 Pulse Ox (%): 97 Assessment & Plan Physician Review Additional Text: Physical Exam General: Alert, Oriented x3, Cooperative, NAD, weak voice, slow to talk HEENT: PERRL, EOMI, Sclerae nonicteric Respiratory: Clear to auscultation bilaterally, Normal air movement Cardiovascular: No edema, Regular rate/rhythm Gastrointestinal: Soft and benign, Non-distended, No tenderness Musculoskeletal: No tenderness Neurological: Sensation intact, Abnormal strength (4+/5 on R extremities, 3/5 LUE/LLE, good filenet developer bilaterally R>L) Problem List unwitnessed Fall Acute encephalopathy, likely metabolic, resolved 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,LUE,LLE) Rhabdomyolysis, resolved b/l knee arthritis Hypernatremia, resolved -no acute findings on imaging, labs appear patient is heme concentrated due to dehydration / on floor for a few days -CPK improved, renal function improved with IVF - dc'd on 01/18 -voiding after gonzales removed, without issue -MRI brain without any new acute findings, shows subacute stroke - consistent with what pt reports she was diagnosed ~5 weeks prior to this admission -continue aspirin, statin; med records requested for medication list / findings - have not received yet -PT and speech therapy consulted -Lovenox for DVT prophylaxis -urine partially concerning for UTI, was covered empirically with levaquin, dc today, culture negative VTE: lovenox Code: full Dispo: SW/CM consulted for [facility]/SNF, apparently patient has been working on this just prior to admission as well patient does not have family around, unsafe to live alone, cannot care for herself at this time awaiting approvals Time Spent Managing Pts Care (In Minutes): 35
[2021-01-20] MEDS: ATORVASTATIN 40 MG TAB PO SCH (21:26)
[2021-01-20] MEDS: TRAMADOL HCL 50 MG TAB PO PRN (21:32)
[2021-01-21 05:04] LABS: RBC Red Blood Cell Count 3.73 M/uL (3.86-4.86)
[2021-01-21 05:05] LABS: Hematocrit 34.3 % (36.0-45.0); MPV 10.1 fL (7.6-11.3)
[2021-01-21 05:26] LABS: BUN Blood Urea Nitrogen 9 mg/dL (7-18); Bicarbonate 27 mmol/L (21-32); Creatine Phosphokinase 237 U/L (26-192); Glucose Level 95 mg/dL (74-106); Magnesium 1.9 mg/dL (1.8-2.4); Potassium 3.8 mmol/L (3.5-5.1); Sodium Level 137 mmol/L (136-145)
[2021-01-21] MEDS: ENOXAPARIN 40 MG/0.4 ML SQ SCH (09:00)
[2021-01-21] MEDS ORDERED: POTASSIUM CL SA 10 MEQ TAB PO ONE (09:00)
[2021-01-21] MEDS: FOLIC ACID 1 MG TABLET PO SCH (09:07)
[2021-01-21] MEDS: ASPIRIN EC 81 MG TAB PO SCH (09:07)
--- NOTE | 2021-01-21 09:48 | P.PN ---
Subjective Date of Service: 01/21/21 Chief Complaint: Rhabdomyolysis, Fall, AMS Subjective: No new changes (no significant events overnight. no new numbness/tingling. reports feels she is slowly improving daily. yesterday with some dizziness when she sat up, BP soft as well. voiding/stooling without issue) Review of Systems 10-point ROS is otherwise unremarkable Physical Examination - Vital Signs Temperature: 97.8 F Blood Pressure: 110/59 Pulse: 58 Respirations: 20 Pulse Ox (%): 95 Assessment & Plan Physician Review Additional Text: Physical Exam General: Alert, Oriented x3, Cooperative, NAD, appears frail HEENT: EOMI, Sclerae nonicteric Respiratory: Clear to auscultation bilaterally, Normal air movement Cardiovascular: No edema, Regular rate/rhythm Gastrointestinal: Soft and benign, Non-distended, No tenderness Musculoskeletal: No tenderness Neurological: Sensation intact, Strength (4+/5 on R extremities, 3/5 LUE/LLE, good scalehouse attendant bilaterally R>L) Problem List unwitnessed Fall Acute encephalopathy, likely metabolic, resolved 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,LUE,LLE) Rhabdomyolysis, resolved b/l knee arthritis Hypernatremia, resolved -MRI brain without any new acute findings, shows subacute stroke - consistent with what pt reports she was diagnosed ~5 weeks prior to this admission -no acute findings on imaging, labs appear patient is heme concentrated due to dehydration / on floor for a few days -CPK improved, renal function improved with IVF - dc'd on 01/18 -voiding after gonzales removed, without issue -continue aspirin, statin; med records requested for medication list / findings - have not received yet -PT and speech therapy consulted -Lovenox for DVT prophylaxis -urine partially concerning for UTI, was covered empirically with levaquin, discontinued since she denied symptoms/culture negative -soft BP and some dizziness when sitting up yesterday, will obtain orthostatic vitals, pt is eating ~75% of meals per EMR, may need gentle IVF VTE: lovenox Code: full Dispo: SW/CM consulted for [facility]/SNF, apparently patient has been working on this just prior to admission as well patient does not have family around, unsafe to live alone, cannot care for herself at this time needs [facility] placement Time Spent Managing Pts Care (In Minutes): 35
[2021-01-21] MEDS: DOCUSATE NA 100 MG CAP PO SCH ×2 (10:06→20:09)
--- NOTE | 2021-01-21 10:59 | RAD REPORT ---
EXAM DESCRIPTION: RAD - Abdomen 1 View (KUB) - 01/21/2021 10:51 am CLINICAL HISTORY: constipation, no BM several days Abdominal pain COMPARISON: Chest Abdomen Pelvis W Cont dated 01/16/2021 FINDINGS: Large stool volume is present filling but not dilating the colon from cecum the mid rectum level. This is slightly more prominent than the CT study though comparison between the 2 imaging mod alities is limited. Small bowel dilatation is not identified. There is no free air or pneumatosis. No bowel obstruction. Stomach is normal size. No suspicious calcifications. Moderate severity L4-5 disc and endplate degenerative changes noted. IMPRESSION: Constipation pattern with a large stool volume filling but not dilating the colon from c ecum to the mid rectum.
[2021-01-21] MEDS ORDERED: BISACODYL 10 MG RECTAL SUPP PR ONE (16:00)
[2021-01-21] MEDS: ATORVASTATIN 40 MG TAB PO SCH (20:09)
[2021-01-21] MEDS: TRAMADOL HCL 50 MG TAB PO PRN (20:12)
[2021-01-22 06:45] LABS: BUN Blood Urea Nitrogen 10 mg/dL (7-18); Bicarbonate 29 mmol/L (21-32); Glucose Level 96 mg/dL (74-106); Sodium Level 137 mmol/L (136-145)
[2021-01-22] MEDS: ASPIRIN EC 81 MG TAB PO SCH (09:17)
[2021-01-22] MEDS: DOCUSATE NA 100 MG CAP PO SCH ×2 (09:17→20:00)
[2021-01-22] MEDS: FOLIC ACID 1 MG TABLET PO SCH (09:17)
[2021-01-22] MEDS: ENOXAPARIN 40 MG/0.4 ML SQ SCH (09:18)
--- NOTE | 2021-01-22 15:55 | P.PN ---
Subjective Date of Service: 01/22/21 Chief Complaint: Rhabdomyolysis, Fall, AMS Subjective: No new changes (reports doing ok, strength slowly improving but still fairly weak, tolerating PO, no BM, +flatus, no abd pain/distention) Review of Systems 10-point ROS is otherwise unremarkable Physical Examination - Vital Signs Temperature: 97.2 F Blood Pressure: 133/63 Pulse: 67 Respirations: 16 Pulse Ox (%): 94 Assessment & Plan Physician Review Additional Text: Physical Exam General: Alert, Oriented x3, Cooperative, NAD, frail appearing, slow to talk HEENT: EOMI, Sclerae nonicteric Respiratory: Clear to auscultation bilaterally, Normal air movement Cardiovascular: No edema, Regular rate/rhythm Gastrointestinal: Soft and benign, Non-distended, No tenderness Musculoskeletal: No tenderness Neurological: Sensation intact, Strength (4+/5 on R extremities, 3/5 LUE/LLE) Problem List unwitnessed Fall Acute encephalopathy, likely metabolic, resolved 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,LUE,LLE) debility Rhabdomyolysis, resolved b/l knee arthritis Hypernatremia, resolved -MRI brain without any new acute findings, shows subacute stroke - consistent with what pt reports she was diagnosed ~5 weeks prior to this admission -no acute findings on imaging, labs appear patient is heme concentrated due to dehydration / on floor for a few days -CPK improved, renal function improved with IVF - dc'd on 01/18 -voiding after gonzales removed, without issue -continue aspirin, statin; med records requested for medication list / findings from recent hospitalization when she had acute CVA -PT and speech therapy consulted -Lovenox for DVT prophylaxis -urine partially concerning for UTI, was covered empirically with levaquin, discontinued since she denied symptoms and culture negative -pt is eating ~75% of meals per EMR, orthostatic (01/21) negative - done because patient reported some dizziness when sitting up with PT the day prior VTE: lovenox Code: full Dispo: SW/CM consulted for [facility]/SNF, apparently patient has been working on this just prior to admission as well patient does not have family around, unsafe to live alone, cannot care for herself at this time needs [facility] placement Time Spent Managing Pts Care (In Minutes): 35
[2021-01-22] MEDS: ATORVASTATIN 40 MG TAB PO SCH (20:00)
[2021-01-23] MEDS: ENOXAPARIN 40 MG/0.4 ML SQ SCH (09:00)
[2021-01-23] MEDS: FOLIC ACID 1 MG TABLET PO SCH (10:02)
[2021-01-23] MEDS: DOCUSATE NA 100 MG CAP PO SCH ×2 (10:02→20:42)
[2021-01-23] MEDS: ASPIRIN EC 81 MG TAB PO SCH (10:02)
--- NOTE | 2021-01-23 14:53 | P.PN ---
Subjective Date of Service: 01/23/21 Chief Complaint: Rhabdomyolysis, Fall, AMS Patient only able to sit at the edge of the bed during physical therapist today. She stated her oral intake has improved. Physical Examination - Vital Signs Temperature: 98.5 F Blood Pressure: 127/61 Pulse: 75 Respirations: 16 Pulse Ox (%): 97 - Physical Exam General: Alert, In no apparent distress, Oriented x3 HEENT: Mucous membr. moist/pink Neck: JVD not distended Respiratory: Clear to auscultation bilaterally, Normal air movement Cardiovascular: No edema, Regular rate/rhythm, Normal S1 S2 Gastrointestinal: Normal bowel sounds, Soft and benign, Non-distended Musculoskeletal: No swelling Integumentary: No rashes Neurological: Other (Mild left-sided weakness) Assessment And Plan Physician Review Additional Text: Problem List unwitnessed Fall Acute encephalopathy, likely metabolic, resolved 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,LUE,LLE) debility Rhabdomyolysis, resolved b/l knee arthritis Hypernatremia, resolved -MRI brain without any new acute findings, shows subacute stroke - consistent with what pt reports she was diagnosed ~5 weeks prior to this admission -no acute findings on imaging. -patient was dehydrated with hypernatremia and evidence of hemoconcentration on the CBC. -CPK and renal function improved. IV fluid discontinued. -voiding after gonzales removed, without issue -continue aspirin, statin. -continue PT and speech therapy -Lovenox for DVT prophylaxis -urine partially concerning for UTI, was covered empirically with levaquin, discontinued since she denied symptoms and culture negative VTE: lovenox Code: full Dispo: SW/CM assisting with SNF placement.
[2021-01-23] MEDS: ATORVASTATIN 40 MG TAB PO SCH (20:42)
[2021-01-24] MEDS: ENOXAPARIN 40 MG/0.4 ML SQ SCH (09:00)
[2021-01-24] MEDS: ASPIRIN EC 81 MG TAB PO SCH (09:25)
[2021-01-24] MEDS: DOCUSATE NA 100 MG CAP PO SCH ×2 (09:25→21:07)
[2021-01-24] MEDS: FOLIC ACID 1 MG TABLET PO SCH (09:25)
[2021-01-24] MEDS: TRAMADOL HCL 50 MG TAB PO SCH (16:14)
--- NOTE | 2021-01-24 17:09 | P.PN ---
Subjective Date of Service: 01/24/21 Chief Complaint: Rhabdomyolysis, Fall, AMS Patient currently has no complain. Physical Examination - Vital Signs Temperature: 97.9 F Blood Pressure: 127/58 Pulse: 68 Respirations: 15 Pulse Ox (%): 96 - Physical Exam General: Alert, In no apparent distress Neck: Supple Respiratory: Clear to auscultation bilaterally, Normal air movement Cardiovascular: No edema, Regular rate/rhythm, Normal S1 S2 Gastrointestinal: Soft and benign, Non-distended, No tenderness Musculoskeletal: No swelling, No tenderness Integumentary: No rashes Assessment And Plan Physician Review Additional Text: Problem List unwitnessed Fall Acute encephalopathy, likely metabolic, resolved 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,LUE,LLE) debility Rhabdomyolysis, resolved b/l knee arthritis Hypernatremia, resolved -MRI brain without any new acute findings, shows subacute stroke - consistent with what pt reports she was diagnosed ~5 weeks prior to this admission -no acute findings on imaging. -patient was dehydrated with hypernatremia and evidence of hemoconcentration on the CBC. Hypernatremia resolved. Leukocytosis resolved. -CPK and renal function improved. IV fluid discontinued. -voiding after gonzales removed, without issue -continue aspirin, statin. -continue PT and speech therapy -Lovenox for DVT prophylaxis -urine partially concerning for UTI, was covered empirically with levaquin, discontinued since she denied symptoms and culture negative VTE: lovenox Code: full Dispo: SW/CM assisting with SNF placement.
[2021-01-24] MEDS: ATORVASTATIN 40 MG TAB PO SCH (21:07)
[2021-01-25] MEDS: TRAMADOL HCL 50 MG TAB PO SCH ×2 (04:46→15:35)
[2021-01-25] MEDS: ENOXAPARIN 40 MG/0.4 ML SQ SCH (09:00)
[2021-01-25] MEDS: DOCUSATE NA 100 MG CAP PO SCH ×2 (09:23→22:20)
[2021-01-25] MEDS: FOLIC ACID 1 MG TABLET PO SCH (09:23)
[2021-01-25] MEDS: CLOPIDOGREL 75 MG TABLET PO SCH (09:23)
--- NOTE | 2021-01-25 16:30 | P.PN ---
Subjective Date of Service: 01/25/21 Chief Complaint: Rhabdomyolysis, Fall, AMS Patient currently has no complain. Patient is more active today. Now able to stand up unsupported. Physical Examination - Vital Signs Temperature: 97.2 F Blood Pressure: 135/67 Pulse: 69 Respirations: 17 Pulse Ox (%): 95 - Physical Exam General: Alert, In no apparent distress, Oriented x3 HEENT: Mucous membr. moist/pink Respiratory: Clear to auscultation bilaterally, Normal air movement Cardiovascular: No edema, Regular rate/rhythm, Normal S1 S2 Gastrointestinal: Normal bowel sounds, Soft and benign, Non-distended Musculoskeletal: No swelling Neurological: Normal strength at 5/5 x4 extr Assessment And Plan Physician Review Additional Text: Problem List unwitnessed Fall Acute encephalopathy, likely metabolic, resolved 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,LUE,LLE) debility Rhabdomyolysis, resolved b/l knee arthritis Hypernatremia, resolved -MRI brain without any new acute findings, shows subacute stroke - consistent with what pt reports she was diagnosed ~5 weeks prior to this admission -no acute findings on imaging. -patient was dehydrated with hypernatremia and evidence of hemoconcentration on the CBC. Hypernatremia resolved. Leukocytosis resolved. -CPK and renal function improved. IV fluid discontinued. -voiding after gonzales removed, without issue. -continue aspirin, statin. -continue PT and speech therapy -Lovenox for DVT prophylaxis -urine partially concerning for UTI, was covered empirically with levaquin, discontinued since she denied symptoms and culture negative VTE: lovenox Code: full Dispo: Awaiting SNF placement.
[2021-01-25] MEDS ORDERED: SIMETHICONE 80 MG TAB PO PRN (17:17)
[2021-01-25] MEDS: ACETAMINOPHEN 500 MG TAB PO PRN (19:39)
[2021-01-25] MEDS: ATORVASTATIN 40 MG TAB PO SCH (22:20)
[2021-01-26] MEDS: TRAMADOL HCL 50 MG TAB PO SCH ×2 (03:05→15:50)
[2021-01-26 06:00] LABS: Absolute Lymphocytes (CBC) 1.4 K/uL (0.7-4.9); Basophils % 0.3 % (0-1.3); Hematocrit 37.6 % (36.0-45.0); Lymphocytes % 14.4 % (15.3-44.8); MPV 9.8 fL (7.6-11.3); RBC Red Blood Cell Count 4.14 M/uL (3.86-4.86)
[2021-01-26 06:26] LABS: Potassium 4.1 mmol/L (3.5-5.1)
[2021-01-26] MEDS: ENOXAPARIN 40 MG/0.4 ML SQ SCH (09:00)
[2021-01-26] MEDS: DOCUSATE NA 100 MG CAP PO SCH ×2 (09:11→21:10)
[2021-01-26] MEDS: FOLIC ACID 1 MG TABLET PO SCH (09:11)
[2021-01-26] MEDS: CLOPIDOGREL 75 MG TABLET PO SCH (09:12)
--- NOTE | 2021-01-26 17:11 | P.PN ---
Subjective Date of Service: 01/26/21 Chief Complaint: Rhabdomyolysis, Fall, AMS Patient report difficulty with urination. Bladder scan revealed 900ml of retained urine. Physical Examination - Vital Signs Temperature: 97.6 F Blood Pressure: 133/74 Pulse: 83 Respirations: 18 Pulse Ox (%): 95 - Physical Exam General: Alert, In no apparent distress HEENT: Mucous membr. moist/pink Neck: JVD not distended Respiratory: Clear to auscultation bilaterally, Normal air movement Cardiovascular: No edema, Regular rate/rhythm, Normal S1 S2 Gastrointestinal: Normal bowel sounds, Soft and benign, Other (Distended bladder) Musculoskeletal: No swelling, No tenderness Integumentary: No rashes Assessment And Plan Physician Review Additional Text: Problem List unwitnessed Fall Acute encephalopathy, likely metabolic, resolved 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,LUE,LLE) debility Rhabdomyolysis, resolved b/l knee arthritis Hypernatremia, resolved Acute urinary retention -MRI brain without any new acute findings, shows subacute stroke - consistent with what pt reports she was diagnosed ~5 weeks prior to this admission -no acute findings on imaging. -patient was dehydrated with hypernatremia and evidence of hemoconcentration on the CBC. Hypernatremia resolved. Leukocytosis resolved. -CPK and renal function improved. IV fluid discontinued. -voiding after gonzales removed, without issue. Now has acute urinary retention again. Straight catheterization today. Monitor -continue aspirin, statin. -continue PT and speech therapy -Lovenox for DVT prophylaxis -urine partially concerning for UTI, was covered empirically with levaquin, discontinued since she denied symptoms and culture negative VTE: lovenox Code: full Dispo: Awaiting SNF placement.
[2021-01-26] MEDS: ATORVASTATIN 40 MG TAB PO SCH (21:10)
[2021-01-27] MEDS: TRAMADOL HCL 50 MG TAB PO SCH ×2 (03:20→14:28)
[2021-01-27] MEDS: ENOXAPARIN 40 MG/0.4 ML SQ SCH (09:00)
[2021-01-27] MEDS: DOCUSATE NA 100 MG CAP PO SCH ×2 (09:36→20:56)
[2021-01-27] MEDS: CLOPIDOGREL 75 MG TABLET PO SCH (09:36)
[2021-01-27] MEDS: FOLIC ACID 1 MG TABLET PO SCH (09:36)
[2021-01-27] MEDS: ACETAMINOPHEN 500 MG TAB PO PRN (11:22)
--- NOTE | 2021-01-27 12:48 | P.PN ---
Subjective Date of Service: 01/27/21 Chief Complaint: Rhabdomyolysis, Fall, AMS Patient had acute urinary retention yesterday. Gonzales catheter was placed and retained. Patient currently has no complain. Physical Examination - Vital Signs Temperature: 97.5 F Blood Pressure: 116/58 Pulse: 71 Respirations: 20 Pulse Ox (%): 93 - Physical Exam General: Alert, In no apparent distress, Oriented x3 HEENT: Mucous membr. moist/pink Neck: JVD not distended Respiratory: Clear to auscultation bilaterally, Normal air movement Cardiovascular: No edema, Regular rate/rhythm, Normal S1 S2 Gastrointestinal: Normal bowel sounds, Soft and benign, Non-distended Musculoskeletal: No swelling Integumentary: No rashes Neurological: Normal strength at 5/5 x4 extr Assessment And Plan Physician Review Additional Text: Problem List unwitnessed Fall Acute encephalopathy, likely metabolic, resolved 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,LUE,LLE) debility Rhabdomyolysis, resolved b/l knee arthritis Hypernatremia, resolved Acute urinary retention -MRI brain without any new acute findings, shows subacute stroke - consistent with what pt reports she was diagnosed ~5 weeks prior to this admission -no acute findings on imaging. -patient was dehydrated with hypernatremia and evidence of hemoconcentration on the CBC. Hypernatremia resolved. Leukocytosis resolved. -CPK and renal function improved. IV fluid discontinued. -voiding after gonzales removed, without issue. Now has acute urinary retention again. Gonzales catheter inserted and retained. -Start Flomax -continue aspirin, statin. -continue PT and speech therapy -Lovenox for DVT prophylaxis -urine partially concerning for UTI, was covered empirically with levaquin. Antibiotics discontinued. VTE: lovenox Code: full Dispo: Awaiting SNF placement.
[2021-01-27] MEDS ORDERED: HYDROCODONE/APAP 5/325 MG TAB PO ONE (15:50)
[2021-01-27] MEDS: ATORVASTATIN 40 MG TAB PO SCH (20:55)
[2021-01-27] MEDS: TAMSULOSIN 0.4 MG SR CAP PO SCH (20:56)
[2021-01-28] MEDS: TRAMADOL HCL 50 MG TAB PO SCH (02:27)
[2021-01-28] MEDS ORDERED: HYDROCODONE/APAP 5/325 MG TAB PO ONE (03:48)
[2021-01-28] MEDS: ENOXAPARIN 40 MG/0.4 ML SQ SCH (09:00)
[2021-01-28] MEDS: DOCUSATE NA 100 MG CAP PO SCH ×2 (09:17→21:46)
[2021-01-28] MEDS: ACETAMINOPHEN 500 MG TAB PO PRN (09:17)
[2021-01-28] MEDS: CLOPIDOGREL 75 MG TABLET PO SCH (09:17)
[2021-01-28] MEDS: FOLIC ACID 1 MG TABLET PO SCH (09:18)
[2021-01-28] MEDS: TRAMADOL HCL 50 MG TAB PO PRN ×2 (11:58→17:48)
--- NOTE | 2021-01-28 12:49 | P.PN ---
Subjective Date of Service: 01/28/21 Chief Complaint: Rhabdomyolysis, Fall, AMS Patient complaining of bilateral leg pain. Gonzales catheter in place. n. Physical Examination - Vital Signs Temperature: 98 F Blood Pressure: 119/59 Pulse: 75 Respirations: 18 Pulse Ox (%): 95 - Physical Exam General: Alert, In no apparent distress HEENT: PERRLA, Sclerae nonicteric Neck: Supple, JVD not distended Respiratory: Clear to auscultation bilaterally, Normal air movement Cardiovascular: No edema, Regular rate/rhythm, Normal S1 S2 Gastrointestinal: Normal bowel sounds, Soft and benign, Non-distended, No tenderness Musculoskeletal: No swelling Integumentary: No rashes Neurological: Other (No focal motor deficit.) Urinary: Gonzales catheter Assessment And Plan Physician Review Additional Text: Problem List unwitnessed Fall Acute encephalopathy, likely metabolic, resolved 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,LUE,LLE) debility Rhabdomyolysis, resolved b/l knee arthritis Hypernatremia, resolved Acute urinary retention -MRI brain without any new acute findings, shows subacute stroke - consistent with what pt reports she was diagnosed ~5 weeks prior to this admission -no acute findings on imaging. -patient was dehydrated with hypernatremia and evidence of hemoconcentration on the CBC. Hypernatremia resolved. Leukocytosis resolved. -CPK and renal function improved. IV fluid discontinued. -initially voiding after gonzales removed, without issue. Now has acute urinary retention again. Gonzales catheter inserted and retained. -continue Flomax. -voiding trial in the a.m. -continue aspirin, statin. -continue PT and speech therapy -Lovenox for DVT prophylaxis -urine partially concerning for UTI, was covered empirically with levaquin. Antibiotics discontinued. VTE: lovenox Code: full Dispo: Awaiting SNF placement.
--- NOTE | 2021-01-28 16:28 | RAD REPORT ---
EXAM DESCRIPTION: RAD - Hip Bilateral With Pelvis - 01/28/2021 4:21 pm CLINICAL HISTORY: Pelvic FINDINGS: The bones are osteoporotic. No fracture or dislocation seen. Mild to moderate osteoarthritis involves the hips mainly consisting of joint space narrowing subchond ral sclerosis
[2021-01-28] MEDS: TAMSULOSIN 0.4 MG SR CAP PO SCH (21:46)
[2021-01-28] MEDS: ATORVASTATIN 40 MG TAB PO SCH (21:46)
[2021-01-29] MEDS: TRAMADOL HCL 50 MG TAB PO PRN ×4 (02:29→20:49)
[2021-01-29 04:20] LABS: Magnesium 1.8 mg/dL (1.8-2.4); Potassium 3.6 mmol/L (3.5-5.1)
[2021-01-29] MEDS ORDERED: MAGNESIUM SULFATE 1 gm IVPB 1 GM/100 ML BAG IV ONE (06:45)
[2021-01-29] MEDS: FOLIC ACID 1 MG TABLET PO SCH (08:24)
[2021-01-29] MEDS: CLOPIDOGREL 75 MG TABLET PO SCH (08:24)
[2021-01-29] MEDS: DOCUSATE NA 100 MG CAP PO SCH ×2 (08:24→20:39)
[2021-01-29] MEDS: ENOXAPARIN 40 MG/0.4 ML SQ SCH (08:24)
[2021-01-29] MEDS ORDERED: POTASSIUM CL SA 10 MEQ TAB PO ONE (09:00)
--- NOTE | 2021-01-29 13:08 | P.PN ---
Subjective Date of Service: 01/29/21 Chief Complaint: Rhabdomyolysis, Fall, AMS Patient complaining of bilateral leg pain. Gonzales catheter in place. Pelvic x-ray-no fracture . Physical Examination - Vital Signs Temperature: 97.1 F Blood Pressure: 109/56 Pulse: 72 Respirations: 16 Pulse Ox (%): 95 - Physical Exam General: Alert, In no apparent distress, Oriented x3 HEENT: Mucous membr. moist/pink Neck: JVD not distended Respiratory: Clear to auscultation bilaterally, Normal air movement Cardiovascular: No edema, Regular rate/rhythm, Normal S1 S2 Gastrointestinal: Normal bowel sounds, Soft and benign, Non-distended, No tenderness Musculoskeletal: No swelling Integumentary: No rashes Neurological: Other (No focal motor deficit) Urinary: Gonzales catheter Assessment And Plan Physician Review Additional Text: Problem List unwitnessed Fall Acute encephalopathy, likely metabolic, resolved 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,LUE,LLE) debility Rhabdomyolysis, resolved b/l knee arthritis Hypernatremia, resolved Acute urinary retention -MRI brain without any new acute findings, shows subacute stroke - consistent with what pt reports she was diagnosed ~5 weeks prior to this admission -no acute findings on imaging. -patient was dehydrated with hypernatremia and evidence of hemoconcentration on the CBC. Hypernatremia resolved. Leukocytosis resolved. -CPK and renal function improved. IV fluid discontinued. -initially voiding after gonzales removed without issue. Now has acute urinary retention again. Gonzales catheter inserted and retained. -continue Flomax. -voiding trial today -continue aspirin, statin. -continue PT and speech therapy -Lovenox for DVT prophylaxis -urine partially concerning for UTI, was covered empirically with levaquin. Antibiotics discontinued. VTE: lovenox Code: full Dispo: Awaiting long-term care placement.
[2021-01-29] MEDS: ATORVASTATIN 40 MG TAB PO SCH (20:39)
[2021-01-29] MEDS: TAMSULOSIN 0.4 MG SR CAP PO SCH (20:44)
[2021-01-29] MEDS: ENSURE ENLIVE 237 ML CAN PO SCH (20:45)
[2021-01-30] MEDS: TRAMADOL HCL 50 MG TAB PO PRN ×4 (02:34→21:46)
[2021-01-30 05:58] LABS: Urine Appearance CLEAR (Clear); Urine Bilirubin NEGATIVE (Negative); Urine Blood TRACE (Negative); Urine Color YELLOW (Yellow); Urine Glucose NEGATIVE (Negative); Urine Protein NEGATIVE (Negative); Urine Specific Gravity <=1.005 (1.005-1.030); Urine Urobilinogen 0.2 mg/dL (0.2-1.0)
[2021-01-30 05:59] LABS: Urine Microscopic Reflex ORDER UMIC
[2021-01-30 06:05] LABS: Urine Bacteria <20 /HPF (<20); Urine RBC <5 /HPF (NONE SEEN); Urine Urothelial Cells <5 /HPF (NONE SEEN)
[2021-01-30 06:19] LABS: BUN Blood Urea Nitrogen 4 mg/dL (7-18); Bicarbonate 28 mmol/L (21-32); Glucose Level 92 mg/dL (74-106); Potassium 3.4 mmol/L (3.5-5.1); Sodium Level 135 mmol/L (136-145)
[2021-01-30] MEDS ORDERED: POTASSIUM CL SA 10 MEQ TAB PO ONE ×2 (09:00→09:27)
[2021-01-30] MEDS: ENOXAPARIN 40 MG/0.4 ML SQ SCH (09:00)
[2021-01-30] MEDS: CLOPIDOGREL 75 MG TABLET PO SCH (09:30)
[2021-01-30] MEDS: FOLIC ACID 1 MG TABLET PO SCH (09:30)
[2021-01-30] MEDS: DOCUSATE NA 100 MG CAP PO SCH ×2 (09:30→21:47)
[2021-01-30] MEDS: ENSURE ENLIVE 237 ML CAN PO SCH ×2 (09:31→21:47)
--- NOTE | 2021-01-30 10:51 | P.PN ---
Subjective Date of Service: 01/30/21 Chief Complaint: Rhabdomyolysis, Fall, AMS Subjective: Other (overall feeling better, having issues with urinary retention the last ~2 days. Labadie suprapubic pressure with significant relief after catheter inserted, otherwise denies dysuria/incontinence, no foul smelling odor, no constipation.) Review of Systems 10-point ROS is otherwise unremarkable Physical Examination - Vital Signs Temperature: 97.0 F Blood Pressure: 105/56 Pulse: 60 Respirations: 15 Pulse Ox (%): 96 Assessment & Plan Physician Review Additional Text: Physical Exam General: Alert, In no apparent distress, Oriented x3 HEENT: Mucous membr. 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 Hypernatremia resolved. Leukocytosis resolved. -CPK and renal function improved. IV fluid discontinued. -initially voiding after gonzales removed without issue. Now has acute urinary retention. Gonzales catheter inserted and retained. check UA today to r/o UTI -b/l leg pain - knees/hips - chronic, had hip x-ray 01/28 without acute findings. possible referred pain from bladder -continue Flomax. -continue aspirin, statin. -continue PT and speech therapy -urine initially was concerning for UTI, was covered empirically with levaquin. Antibiotics discontinued after negative culture and patient denied symptoms. VTE: lovenox Code: full Dispo: Awaiting long-term care placement. Time Spent Managing Pts Care (In Minutes): 35
[2021-01-30] MEDS ORDERED: LORazepam 2 MG/ML VIAL IV STA (17:39)
--- NOTE | 2021-01-30 19:08 | RAD REPORT ---
EXAM DESCRIPTION: MRI - Spine Lumbar W/Wo Cont - 01/30/2021 6:38 pm CLINICAL HISTORY: Bilateral hip and leg pain, weakness, urinary incontinence COMPARISON: None. TECHNIQUE: Sagittal T1-weighted, T2-weighted and T2-STIR weighted sequences were obtained. Axial T1- weighted and heavily T2-weighted sequences were obtained through the lumbar disc levels. Sagittal and axial post-contrast. T1-weighted images were obtained following ml on Gd contrast material. FINDINGS: Exam has motion degradation limitation. Multiple sequences had to be repeated. Lumbar bodies are normal in height and alignment. No suspicious marrow signal. No paraspinal masses. Chronic fatty marrow degenerative changes are present most notable in the L4 and L5 bodies. Conus is normal with no clumping or thickening of the cauda equina. T12-L1 level: No significant findings. L1-2 level: No significant findings. L2-3 level: Disc is desiccated without loss in disc height. Minimal bulging of disc material is prese nt. No canal or foramen stenosis. L3-4 level: Disc is thinned and desiccated. Circumferential bulging of disc material is present. Post erior ligamentous thickening seen. Midline central canal is 15 mm. No significant left foraminal encr oachment. Mild right foraminal stenosis present. Perineural fat still surrounds the exiting nerve macey ts. L4-5 level: Disc is thinned and desiccated. There significant degenerative change to the endplates. C ircumferential disc bulge without herniation. Ligamentous thickening is present. Central canal is bor derline stenotic at 10-11 mm. Disc bulge and endplate spurring changes cause mild left foraminal sten osis and moderately severe right foraminal stenosis. Very little perineural fat remains on the right. L5-S1 level: Disc is thinned and desiccated. No herniation or significant disc bulge. No right forami nal stenosis or central spinal stenosis. Disc bulge and endplate spurring changes are prominent left lateral aspect of the disc space. Moderately severe left foraminal stenosis is present. Post-contrast view show no abnormal vertebral body or disc enhancement. No cord or cauda equina abnor mality seen. No suspicious enhancement in the central canal. IMPRESSION: Bulging disc material and endplate spurring changes cause moderately severe right forami nal stenosis L4-5 and moderately severe left foraminal stenosis at L5-S1. Degenerative change present throughout the mid and lower lumbar spine as detailed. There is no signif icant central spinal stenosis. No epidural abscess, mass or other emergent finding. Vertebral bodies show fatty marrow degenerative change but no marrow edema or replacing process.
[2021-01-30] MEDS: TAMSULOSIN 0.4 MG SR CAP PO SCH (21:47)
[2021-01-30] MEDS: ATORVASTATIN 40 MG TAB PO SCH (21:47)
[2021-01-31] MEDS: ACETAMINOPHEN 500 MG TAB PO PRN (00:26)
[2021-01-31 04:06] LABS: Absolute Lymphocytes (CBC) 1.7 K/uL (0.7-4.9); Basophils % 0.7 % (0-1.3); Hematocrit 30.3 % (36.0-45.0); Lymphocytes % 25.7 % (15.3-44.8); MPV 9.7 fL (7.6-11.3); RBC Red Blood Cell Count 3.34 M/uL (3.86-4.86)
[2021-01-31 04:15] LABS: BUN Blood Urea Nitrogen 5 mg/dL (7-18); Bicarbonate 28 mmol/L (21-32); Glucose Level 111 mg/dL (74-106); Potassium 3.4 mmol/L (3.5-5.1); Sodium Level 135 mmol/L (136-145)
[2021-01-31] MEDS ORDERED: POTASSIUM 25 MEQ EFFERV TAB PO ONE (05:04)
[2021-01-31] MEDS: TRAMADOL HCL 50 MG TAB PO PRN ×3 (07:03→22:06)
[2021-01-31] MEDS: ENOXAPARIN 40 MG/0.4 ML SQ SCH (09:00)
[2021-01-31] MEDS: ENSURE ENLIVE 237 ML CAN PO SCH ×2 (09:00→20:06)
[2021-01-31] MEDS: IBUPROFEN 600 MG TAB PO PRN ×2 (09:13→20:06)
[2021-01-31] MEDS: DOCUSATE NA 100 MG CAP PO SCH ×2 (09:14→20:06)
[2021-01-31] MEDS: CLOPIDOGREL 75 MG TABLET PO SCH (09:14)
[2021-01-31] MEDS: FOLIC ACID 1 MG TABLET PO SCH (09:14)
--- NOTE | 2021-01-31 14:31 | P.PN ---
Subjective Date of Service: 01/31/21 Chief Complaint: Rhabdomyolysis, Fall, AMS Subjective: No new changes (continues with some mild-mod lower back pain and b/l leg pain, difficult for patient to describe, states it comes/goes, can't think of anything in particular that worsens/improves. Hasn't gotten out of bed.) Review of Systems 10-point ROS is otherwise unremarkable Physical Examination - Vital Signs Temperature: 97.6 F Blood Pressure: 93/60 Pulse: 76 Respirations: 14 Pulse Ox (%): 94 Assessment & Plan Physician Review Additional Text: Physical Exam General: Alert, In no apparent distress, Oriented x3 HEENT: Mucous membr. moist/pink Respiratory: Clear to auscultation bilaterally, Normal air movement Cardiovascular: No edema, Regular rate/rhythm, Normal S1 S2 Gastrointestinal: Soft and benign, Non-distended, No tenderness Musculoskeletal: No swelling, mid tenderness at b/l lower legs, above ankles. 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 Hypernatremia resolved. Leukocytosis resolved. -CPK and renal function improved. IV fluid discontinued. -initially voiding after gonzales removed without issue. Now has acute urinary retention. Gonzales catheter inserted and retained. repeat UA not concerning for UTI -b/l leg pain - knees/hips - chronic, had hip x-ray 01/28 without acute findings. possible referred pain from bladder -lumbar MRI obtained yesterday due to above symptoms -Bulging disk material and spurring changes causing moderately severe right foraminal stenosis at L4-L5 and moderately severe left foraminal stenosis at L5-S1. No significant central spinal stenosis. Will try ibuprofen. May need steroids. No improvement will consider further discussion with Neurology. -continue Flomax. -continue aspirin, statin. -continue PT and speech therapy -urine initially was concerning for UTI, was covered empirically with levaquin. Antibiotics discontinued after negative culture and patient denied symptoms. VTE: lovenox Code: full Dispo: Awaiting long-term care placement. Time Spent Managing Pts Care (In Minutes): 35
[2021-01-31] MEDS: ATORVASTATIN 40 MG TAB PO SCH (20:06)
[2021-01-31] MEDS: TAMSULOSIN 0.4 MG SR CAP PO SCH (20:06)
[2021-02-01 04:59] LABS: Absolute Lymphocytes (CBC) 1.7 K/uL (0.7-4.9); Basophils % 0.9 % (0-1.3); Hematocrit 29.3 % (36.0-45.0); Lymphocytes % 26.5 % (15.3-44.8); MPV 9.7 fL (7.6-11.3); RBC Red Blood Cell Count 3.25 M/uL (3.86-4.86)
[2021-02-01 05:07] LABS: BUN Blood Urea Nitrogen 7 mg/dL (7-18); Bicarbonate 28 mmol/L (21-32); Glucose Level 89 mg/dL (74-106); Potassium 4.1 mmol/L (3.5-5.1); Sodium Level 136 mmol/L (136-145)
[2021-02-01] MEDS: ACETAMINOPHEN 325 MG TABLET PO SCH ×5 (05:40→23:29)
[2021-02-01] MEDS: ENSURE ENLIVE 237 ML CAN PO SCH ×2 (09:00→20:04)
[2021-02-01] MEDS: ENOXAPARIN 40 MG/0.4 ML SQ SCH (09:00)
[2021-02-01] MEDS: LIDOCAINE 4% PATCH TOP SCH (09:10)
[2021-02-01] MEDS: FOLIC ACID 1 MG TABLET PO SCH (09:10)
[2021-02-01] MEDS: DOCUSATE NA 100 MG CAP PO SCH ×2 (09:10→20:04)
[2021-02-01] MEDS: CLOPIDOGREL 75 MG TABLET PO SCH (09:11)
--- NOTE | 2021-02-01 16:17 | P.PN ---
Subjective Date of Service: 02/01/21 Chief Complaint: Rhabdomyolysis, Fall, AMS Subjective: No new changes (no acute events overnight. Doing better this morning, pain improved, now mostly in L flank and legs. no SOB/chest pain) Review of Systems 10-point ROS is otherwise unremarkable Physical Examination - Vital Signs Temperature: 98.8 F Blood Pressure: 100/55 Pulse: 66 Respirations: 16 Pulse Ox (%): 95 Assessment & Plan Physician Review Additional Text: Physical Exam General: Alert, Oriented x3 HEENT: Mucous membr. moist/pink Respiratory: Clear to auscultation bilaterally, Normal air movement Cardiovascular: No edema, Regular rate/rhythm, Normal S1 S2 Gastrointestinal: Soft and benign, Non-distended, No tenderness Musculoskeletal: mild tenderness at b/l lower legs, above ankles. 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 Hypernatremia resolved. Leukocytosis resolved. -CPK and renal function improved with brief use of IVF -initially voiding after gonzales removed without issue. Now with acute urinary retention. Gonzales catheter inserted and retained. repeat UA not concerning for UTI -b/l leg pain - knees/hips - chronic, had hip x-ray 01/28 without acute findings. possible referred pain from bladder -lumbar MRI obtained yesterday due to above symptoms -Bulging disk material and spurring changes causing moderately severe right foraminal stenosis at L4-L5 and moderately severe left foraminal stenosis at L5-S1. No significant central spinal stenosis. Neurology consulted, patient with mild improvement with ibuprofen -continue Flomax. -continue aspirin, statin. -continue PT and speech therapy -urine initially was concerning for UTI, was covered empirically with levaquin. Antibiotics discontinued after negative culture and patient denied symptoms. VTE: lovenox Code: full Dispo: Awaiting long-term care placement. Time Spent Managing Pts Care (In Minutes): 35
[2021-02-01] MEDS: IBUPROFEN 600 MG TAB PO PRN (20:04)
[2021-02-01] MEDS: TAMSULOSIN 0.4 MG SR CAP PO SCH (20:04)
[2021-02-01] MEDS: ATORVASTATIN 40 MG TAB PO SCH (20:04)
[2021-02-02] MEDS: ACETAMINOPHEN 325 MG TABLET PO SCH ×3 (05:28→16:59)
[2021-02-02] MEDS: CLOPIDOGREL 75 MG TABLET PO SCH (08:14)
[2021-02-02] MEDS: DOCUSATE NA 100 MG CAP PO SCH ×2 (08:14→20:59)
[2021-02-02] MEDS: FOLIC ACID 1 MG TABLET PO SCH (08:14)
[2021-02-02] MEDS: ENOXAPARIN 40 MG/0.4 ML SQ SCH (08:15)
[2021-02-02] MEDS: ENSURE ENLIVE 237 ML CAN PO SCH ×2 (08:15→21:02)
[2021-02-02] MEDS: LIDOCAINE 4% PATCH TOP SCH (08:15)
[2021-02-02] MEDS: IBUPROFEN 600 MG TAB PO PRN (15:22)
--- NOTE | 2021-02-02 15:27 | P.PN ---
Subjective Date of Service: 02/02/21 Chief Complaint: Rhabdomyolysis, Fall, AMS Subjective: No new changes (intermittent R buttock pain this morning, lasting a few minutes, down leg. otherwise doing ok) Review of Systems 10-point ROS is otherwise unremarkable Physical Examination - Vital Signs Temperature: 97.7 F Blood Pressure: 147/64 Pulse: 91 Respirations: 18 Pulse Ox (%): 96 Assessment & Plan Physician Review Additional Text: Physical Exam General: Alert, NAD HEENT: Mucous membr. moist/pink Respiratory: Clear to auscultation bilaterally, Normal air movement Cardiovascular: No edema, Regular rate/rhythm, Normal S1 S2 Gastrointestinal: Soft and benign, Non-distended, No tenderness Musculoskeletal: mild tenderness at b/l lower legs above ankles, ROM at hip limited from full flexion due to posterior thigh pain Integumentary: No rashes Urinary: Gonzales catheter in place Problem List unwitnessed Fall at home Acute encephalopathy, likely metabolic, resolved prior subacute CVA with residual L sided weakness (face,LUE,LLE) debility Rhabdomyolysis, resolved b/l knee arthritis Hypernatremia, resolved Acute urinary retention, with gonzales in place moderately severe R foraminal stenosis L4-L5 moderately severe L foraminal stenosis L5-S1 -MRI brain without any new acute findings, shows subacute stroke - consistent with what pt reports she was diagnosed ~5 weeks prior to this admission -patient was dehydrated with hypernatremia and evidence of hemoconcentration on the CBC. Hypernatremia resolved. Leukocytosis resolved. -CPK and renal function improved with brief use of IVF -initially voiding after gonzales removed without issue. Now with acute urinary retention. Gonzales catheter inserted and retained. repeat UA not concerning for UTI -b/l leg pain - knees/hips - chronic, had hip x-ray 01/28 without acute findings. -lumbar MRI -Bulging disk material and spurring changes causing moderately severe right foraminal stenosis at L4-L5 and moderately severe left foraminal stenosis at L5-S1. No significant central spinal stenosis. Neurology consulted, patient with mild improvement with ibuprofen, will add Gabapentin - start 300mg qHS for 2-3 days, then BID -continue Flomax. -continue aspirin, statin. -continue PT and speech therapy -urine initially was concerning for UTI, was covered empirically with levaquin. Antibiotics discontinued after negative culture and patient denied symptoms. VTE: xarelto prophylaxis Code: full Dispo: Awaiting long-term care placement. Time Spent Managing Pts Care (In Minutes): 35
[2021-02-02] MEDS: TRAMADOL HCL 50 MG TAB PO PRN (19:32)
[2021-02-02] MEDS: TAMSULOSIN 0.4 MG SR CAP PO SCH (20:59)
[2021-02-02] MEDS: ATORVASTATIN 40 MG TAB PO SCH (20:59)
[2021-02-02] MEDS ORDERED: GABAPENTIN 300 MG CAP PO SCH (21:00)
[2021-02-03] MEDS: ACETAMINOPHEN 325 MG TABLET PO SCH ×4 (00:13→17:56)
[2021-02-03] MEDS: ENSURE ENLIVE 237 ML CAN PO SCH ×2 (09:00→20:34)
[2021-02-03] MEDS: DOCUSATE NA 100 MG CAP PO SCH ×2 (09:12→20:32)
[2021-02-03] MEDS: CLOPIDOGREL 75 MG TABLET PO SCH (09:12)
[2021-02-03] MEDS: FOLIC ACID 1 MG TABLET PO SCH (09:12)
[2021-02-03] MEDS: RIVAROXABAN 10 MG TABLET PO SCH (09:12)
--- NOTE | 2021-02-03 09:36 | P.PN ---
Subjective Date of Service: 02/03/21 Chief Complaint: Rhabdomyolysis, Fall, AMS Subjective: No new changes (overall doing ok, occasional shooting pain in left lower back down left leg to knee. denies SOB, chest pain, abd pain. +BM yesterday) Review of Systems 10-point ROS is otherwise unremarkable Physical Examination - Vital Signs Temperature: 97.5 F Blood Pressure: 117/64 Pulse: 66 Respirations: 18 Pulse Ox (%): 97 Assessment & Plan Physician Review Additional Text: Physical Exam General: Alert, NAD HEENT: Mucous membr. moist/pink Respiratory: Clear to auscultation bilaterally, Normal air movement Cardiovascular: No edema, Regular rate/rhythm, Normal S1 S2 Gastrointestinal: Soft and benign, Non-distended, No tenderness Musculoskeletal: mild tenderness at b/l lower legs above ankles, no tenderness with palpation along upper legs/thighs/hip. normal plantar/dorsi-flexion bilaterally Integumentary: No rashes Urinary: Gonzales catheter in place Problem List unwitnessed Fall at home Acute metabolic encephalopathy, resolved prior subacute CVA with residual L sided weakness (face,LUE,LLE) debility Rhabdomyolysis, resolved b/l knee arthritis Hypernatremia, resolved Acute urinary retention, with gonzales in place moderately severe R foraminal stenosis L4-L5 moderately severe L foraminal stenosis L5-S1 -MRI brain: no new acute findings, +subacute stroke - consistent with what pt reports she was diagnosed ~5 weeks prior to this admission -patient was dehydrated with hypernatremia and evidence of hemoconcentration on the CBC. Hypernatremia resolved. Leukocytosis resolved. Mentation improved -CPK and renal function improved with brief use of IVF -initially voiding after gonzales removed without issue. Now with acute urinary retention. Gonzales catheter inserted and retained. repeat UA not concerning for UTI -b/l leg pain - knees/hips - chronic, had hip x-ray 01/28 without acute findings. -lumbar MRI -Bulging disk material and spurring changes causing moderately severe right foraminal stenosis at L4-L5 and moderately severe left foraminal stenosis at L5-S1. No significant central spinal stenosis. Neurology consulted, patient with mild improvement with ibuprofen, switch to prednisone 02/03, started gabapentin 300mg 02/02 qHS, increase to 300 mg BID 02/04 -continue Flomax. -continue aspirin, statin. -continue PT and speech therapy -urine initially was concerning for UTI, was covered empirically with levaquin. Antibiotics discontinued after negative culture and patient denied symptoms. VTE: xarelto prophylaxis Code: full Dispo: Awaiting long-term care placement. Time Spent Managing Pts Care (In Minutes): 35
[2021-02-03] MEDS: LIDOCAINE 4% PATCH TOP SCH (11:49)
[2021-02-03] MEDS: predniSONE 20 MG TAB PO SCH ×2 (11:55→20:33)
[2021-02-03] MEDS: ATORVASTATIN 40 MG TAB PO SCH (20:32)
[2021-02-03] MEDS: TAMSULOSIN 0.4 MG SR CAP PO SCH (20:32)
[2021-02-03] MEDS: GABAPENTIN 300 MG CAP PO SCH (20:32)
[2021-02-03] MEDS: TRAMADOL HCL 50 MG TAB PO PRN (20:33)
[2021-02-04] MEDS: ACETAMINOPHEN 325 MG TABLET PO SCH ×4 (00:47→17:09)
[2021-02-04] MEDS: LIDOCAINE 4% PATCH TOP SCH (08:14)
[2021-02-04] MEDS: predniSONE 20 MG TAB PO SCH ×2 (08:14→20:21)
[2021-02-04] MEDS: GABAPENTIN 300 MG CAP PO SCH ×2 (08:15→20:21)
[2021-02-04] MEDS: FOLIC ACID 1 MG TABLET PO SCH (08:15)
[2021-02-04] MEDS: CLOPIDOGREL 75 MG TABLET PO SCH (08:15)
[2021-02-04] MEDS: ENSURE ENLIVE 237 ML CAN PO SCH ×2 (08:15→20:21)
[2021-02-04] MEDS: RIVAROXABAN 10 MG TABLET PO SCH (08:15)
[2021-02-04] MEDS: DOCUSATE NA 100 MG CAP PO SCH ×2 (08:15→20:21)
--- NOTE | 2021-02-04 15:48 | P.PN ---
Subjective Date of Service: 02/04/21 Chief Complaint: Rhabdomyolysis, Fall, AMS Subjective: No new changes (lower back / leg pain slightly improved) Review of Systems 10-point ROS is otherwise unremarkable Physical Examination - Vital Signs Temperature: 98.4 F Blood Pressure: 108/57 Pulse: 79 Respirations: 18 Pulse Ox (%): 98 Assessment & Plan Physician Review Additional Text: Physical Exam General: Alert, NAD HEENT: Mucous membr. moist/pink Respiratory: Clear to auscultation bilaterally, Normal air movement Cardiovascular: No edema, Regular rate/rhythm, Normal S1 S2 Gastrointestinal: Soft and benign, Non-distended, No tenderness Musculoskeletal: no tenderness with palpation along upper legs/thighs/hip. normal plantar/dorsi-flexion bilaterally Integumentary: No rashes Urinary: Gonzales catheter in place Problem List unwitnessed fall at home Acute metabolic encephalopathy, resolved prior subacute CVA with residual L sided weakness (face,LUE,LLE) debility Rhabdomyolysis, resolved b/l knee arthritis Hypernatremia, resolved Acute urinary retention, with gonzales in place moderately severe R foraminal stenosis L4-L5 moderately severe L foraminal stenosis L5-S1 -MRI brain: no new acute findings, +subacute stroke - consistent with what pt reports she was diagnosed ~5 weeks prior to this admission -patient was dehydrated with hypernatremia and evidence of hemoconcentration on the CBC. Hypernatremia resolved. Leukocytosis resolved. Mentation improved -CPK and renal function improved with brief use of IVF -initially voiding after gonzales removed without issue. Now with acute urinary retention. Gonzales catheter inserted and retained. repeat UA not concerning for UTI -b/l leg pain - knees/hips - chronic, had hip x-ray 01/28 without acute findings. -lumbar MRI -Bulging disk material and spurring changes causing moderately severe right foraminal stenosis at L4-L5 and moderately severe left foraminal stenosis at L5-S1. No significant central spinal stenosis. Neurology consulted, patient with mild improvement with ibuprofen, switched to prednisone 02/03, started gabapentin 300mg 02/02 qHS, increased to 300 mg BID 02/04 -with some improvement in leg/lower back pain -continue Flomax. -continue aspirin, statin. -continue PT and speech therapy VTE: xarelto prophylaxis Code: full Dispo: Awaiting long-term care placement. Time Spent Managing Pts Care (In Minutes): 35
[2021-02-04] MEDS: ATORVASTATIN 40 MG TAB PO SCH (20:21)
[2021-02-04] MEDS: TAMSULOSIN 0.4 MG SR CAP PO SCH (20:21)
[2021-02-05] MEDS: ACETAMINOPHEN 325 MG TABLET PO SCH ×4 (05:03→17:08)
[2021-02-05] MEDS: TRAMADOL HCL 50 MG TAB PO PRN ×3 (05:06→17:11)
[2021-02-05] MEDS: FOLIC ACID 1 MG TABLET PO SCH (07:58)
[2021-02-05] MEDS: RIVAROXABAN 10 MG TABLET PO SCH (07:59)
[2021-02-05] MEDS: predniSONE 20 MG TAB PO SCH ×2 (07:59→20:32)
[2021-02-05] MEDS: CLOPIDOGREL 75 MG TABLET PO SCH (07:59)
[2021-02-05] MEDS: DOCUSATE NA 100 MG CAP PO SCH ×2 (07:59→20:32)
[2021-02-05] MEDS: GABAPENTIN 300 MG CAP PO SCH ×2 (07:59→20:32)
[2021-02-05] MEDS: ENSURE ENLIVE 237 ML CAN PO SCH ×2 (07:59→20:33)
[2021-02-05] MEDS: LIDOCAINE 4% PATCH TOP SCH (07:59)
--- NOTE | 2021-02-05 12:28 | P.PN ---
Subjective Date of Service: 02/05/21 Chief Complaint: Rhabdomyolysis, Fall, AMS Subjective: Improving (feels leg/hip pain improved somewhat. no other complaints, tolerating diet) Review of Systems 10-point ROS is otherwise unremarkable Physical Examination - Vital Signs Temperature: 97.8 F Blood Pressure: 137/66 Pulse: 64 Respirations: 18 Pulse Ox (%): 97 Assessment & Plan Physician Review Additional Text: Physical Exam General: Alert, NAD HEENT: Mucous membr. moist/pink Respiratory: Clear to auscultation bilaterally, Normal air movement Cardiovascular: No edema, Regular rate/rhythm, Normal S1 S2 Gastrointestinal: Soft , Non-distended, No tenderness Musculoskeletal: no tenderness along b/l lower legs, normal plantar/dorsi- flexion bilaterally Integumentary: No rashes Urinary: Gonzales catheter in place Problem List unwitnessed fall at home Acute metabolic encephalopathy, resolved prior subacute CVA with residual L sided weakness (face,LUE,LLE) debility Rhabdomyolysis, resolved b/l knee arthritis Hypernatremia, resolved Acute urinary retention, with gonzales in place moderately severe R foraminal stenosis L4-L5 moderately severe L foraminal stenosis L5-S1 -MRI brain: no new acute findings, +subacute stroke - consistent with what pt reports she was diagnosed ~5 weeks prior to this admission -patient was significantly dehydrated. Hypernatremia, leukocytosis, CPK, and renal function all resolved/improved with IVF. -initially voiding after gonzales removed without issue. Now with acute urinary retention. Gonzales catheter inserted and retained. repeat UA not concerning for UTI -b/l leg pain - knees/hips - chronic, had hip x-ray 01/28 without acute findings. -lumbar MRI -Bulging disk material and spurring changes causing moderately severe right foraminal stenosis at L4-L5 and moderately severe left foraminal stenosis at L5-S1. No significant central spinal stenosis. Neurology consulted, patient with mild improvement with ibuprofen, switched to prednisone 02/03, started gabapentin 300mg 02/02 qHS, increased to 300 mg BID 02/04 -with some improvement in leg/lower back pain -continue Flomax. -continue aspirin, statin. -continue PT and speech therapy VTE: xarelto prophylaxis Code: full Dispo: Awaiting long-term care placement. Time Spent Managing Pts Care (In Minutes): 35
[2021-02-05] MEDS: TAMSULOSIN 0.4 MG SR CAP PO SCH (20:32)
[2021-02-05] MEDS: ATORVASTATIN 40 MG TAB PO SCH (20:32)
[2021-02-06] MEDS: TRAMADOL HCL 50 MG TAB PO PRN ×3 (01:00→12:50)
[2021-02-06] MEDS: ACETAMINOPHEN 325 MG TABLET PO SCH ×4 (01:00→17:57)
[2021-02-06 06:18] LABS: BUN Blood Urea Nitrogen 15 mg/dL (7-18); Bicarbonate 28 mmol/L (21-32); Glucose Level 112 mg/dL (74-106); Sodium Level 140 mmol/L (136-145)
[2021-02-06 06:22] LABS: Magnesium 2.1 mg/dL (1.8-2.4); Potassium 4.4 mmol/L (3.5-5.1)
[2021-02-06] MEDS: CLOPIDOGREL 75 MG TABLET PO SCH (09:00)
[2021-02-06] MEDS: RIVAROXABAN 10 MG TABLET PO SCH (09:27)
[2021-02-06] MEDS: GABAPENTIN 300 MG CAP PO SCH ×2 (09:27→20:36)
[2021-02-06] MEDS: FOLIC ACID 1 MG TABLET PO SCH (09:27)
[2021-02-06] MEDS: predniSONE 20 MG TAB PO SCH ×2 (09:27→20:36)
[2021-02-06] MEDS: DOCUSATE NA 100 MG CAP PO SCH ×2 (09:27→20:36)
[2021-02-06] MEDS: LIDOCAINE 4% PATCH TOP SCH (09:28)
[2021-02-06] MEDS: ENSURE ENLIVE 237 ML CAN PO SCH ×2 (09:31→20:37)
--- NOTE | 2021-02-06 13:53 | P.PN ---
Subjective Date of Service: 02/06/21 Chief Complaint: Rhabdomyolysis, Fall, AMS Patient complaining of bilateral leg pain but stated pain is much better. Gonzales catheter in place. Physical Examination - Vital Signs Temperature: 97.5 F Blood Pressure: 120/59 Pulse: 76 Respirations: 18 Pulse Ox (%): 100 - Physical Exam General: Alert, In no apparent distress, Oriented x3 HEENT: Mucous membr. moist/pink Neck: JVD not distended Respiratory: Clear to auscultation bilaterally, Normal air movement Cardiovascular: No edema, Regular rate/rhythm, Normal S1 S2 Gastrointestinal: Normal bowel sounds, Soft and benign, Non-distended, No tenderness Musculoskeletal: No swelling, No tenderness Integumentary: No rashes, No erythema Neurological: Normal strength at 5/5 x4 extr Assessment And Plan Physician Review Additional Text: Physical Exam General: Alert, NAD HEENT: Mucous membr. moist/pink Respiratory: Clear to auscultation bilaterally, Normal air movement Cardiovascular: No edema, Regular rate/rhythm, Normal S1 S2 Gastrointestinal: Soft , Non-distended, No tenderness Musculoskeletal: no tenderness along b/l lower legs, normal plantar/dorsi- flexion bilaterally Integumentary: No rashes Urinary: Gonzales catheter in place Problem List unwitnessed fall at home Acute metabolic encephalopathy, resolved prior subacute CVA with residual L sided weakness (face,LUE,LLE) debility Rhabdomyolysis, resolved b/l knee arthritis Hypernatremia, resolved Acute urinary retention, with gonzales in place moderately severe R foraminal stenosis L4-L5 moderately severe L foraminal stenosis L5-S1 -MRI brain: no new acute findings, +subacute stroke - consistent with what pt reports she was diagnosed ~5 weeks prior to this admission -patient was significantly dehydrated. Hypernatremia, leukocytosis, CPK, and renal function all resolved/improved with IVF. -initially voiding after gonzales removed without issue. Now with acute urinary retention. Gonzales catheter inserted and retained. repeat UA not concerning for UTI. -patient started on Flomax for urinary retention. -Dc Gonzales catheter for voiding trial today -b/l leg pain - knees/hips - chronic, had hip x-ray 01/28 without acute findings. -lumbar MRI -Bulging disk material and spurring changes causing moderately severe right foraminal stenosis at L4-L5 and moderately severe left foraminal stenosis at L5-S1. No significant central spinal stenosis. Neurology consulted, patient with mild improvement with ibuprofen, switched to prednisone 02/03, started gabapentin 300mg 02/02 qHS, increased to 300 mg BID 02/04 -continue aspirin, statin. -continue PT and speech therapy VTE: xarelto prophylaxis Code: full Dispo: Awaiting long-term care placement.
[2021-02-06] MEDS: TAMSULOSIN 0.4 MG SR CAP PO SCH (20:36)
[2021-02-06] MEDS: ATORVASTATIN 40 MG TAB PO SCH (20:36)
[2021-02-07] MEDS: ACETAMINOPHEN 325 MG TABLET PO SCH ×4 (00:16→17:09)
[2021-02-07] MEDS: DOCUSATE NA 100 MG CAP PO SCH ×2 (09:00→20:19)
[2021-02-07] MEDS: RIVAROXABAN 10 MG TABLET PO SCH (09:00)
[2021-02-07] MEDS: FOLIC ACID 1 MG TABLET PO SCH (09:00)
[2021-02-07] MEDS: GABAPENTIN 300 MG CAP PO SCH ×2 (09:00→20:19)
[2021-02-07] MEDS: predniSONE 20 MG TAB PO SCH ×2 (09:00→20:19)
[2021-02-07] MEDS: CLOPIDOGREL 75 MG TABLET PO SCH (09:00)
[2021-02-07] MEDS: ENSURE ENLIVE 237 ML CAN PO SCH ×2 (09:01→20:19)
[2021-02-07] MEDS: LIDOCAINE 4% PATCH TOP SCH (09:01)
[2021-02-07] MEDS ORDERED: NA CHLORIDE 0.9% 250 ML ONE (15:46)
[2021-02-07] MEDS ORDERED: DURVALUMAB IV ONE ×2 (15:46)
[2021-02-07] MEDS ORDERED: NA CHLORIDE 0.9% 100 ML IV ONE (15:47)
--- NOTE | 2021-02-07 19:00 | P.PN ---
Subjective Date of Service: 02/07/21 Chief Complaint: Rhabdomyolysis, Fall, AMS Patient had difficulty voiding after Gonzales catheter was removed for a voiding trial yesterday. Gonzales catheter was reinserted and maintained last night. Physical Examination - Vital Signs Temperature: 98.1 F Blood Pressure: 119/65 Pulse: 75 Respirations: 20 Pulse Ox (%): 98 - Physical Exam General: Alert, In no apparent distress HEENT: Mucous membr. 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 Hypernatremia, leukocytosis, CPK, and renal function all resolved/improved with IVF. -initially voiding after gonzales removed without issue. Now with acute urinary retention. Gonzales catheter inserted and retained. repeat UA not concerning for UTI. -patient started on Flomax for urinary retention. -Gonzales catheter reinserted. Consult Urology -b/l leg pain - knees/hips - chronic, had hip x-ray 01/28 without acute findings. -lumbar MRI -Bulging disk material and spurring changes causing moderately severe right foraminal stenosis at L4-L5 and moderately severe left foraminal stenosis at L5-S1. No significant central spinal stenosis. Neurology consulted, patient with mild improvement with ibuprofen, switched to prednisone 02/03, started gabapentin 300mg 02/02 qHS, increased to 300 mg BID 02/04 -continue aspirin, statin. -continue PT and speech therapy VTE: xarelto prophylaxis Code: full Dispo: Awaiting long-term care placement.
[2021-02-07] MEDS: ATORVASTATIN 40 MG TAB PO SCH (20:19)
[2021-02-07] MEDS: TAMSULOSIN 0.4 MG SR CAP PO SCH (20:19)
[2021-02-08 04:40] LABS: Absolute Lymphocytes (CBC) 1.5 K/uL (0.7-4.9); Basophils % 0.2 % (0-1.3); Hematocrit 31.8 % (36.0-45.0); MPV 9.4 fL (7.6-11.3); RBC Red Blood Cell Count 3.47 M/uL (3.86-4.86)
[2021-02-08 04:54] LABS: BUN Blood Urea Nitrogen 12 mg/dL (7-18); Bicarbonate 28 mmol/L (21-32); Glucose Level 114 mg/dL (74-106); Potassium 3.9 mmol/L (3.5-5.1); Sodium Level 140 mmol/L (136-145)
[2021-02-08] MEDS ORDERED: POTASSIUM CL SA 10 MEQ TAB PO ONE (05:26)
[2021-02-08] MEDS: ACETAMINOPHEN 325 MG TABLET PO SCH ×4 (05:40→17:38)
[2021-02-08] MEDS: FOLIC ACID 1 MG TABLET PO SCH (10:05)
[2021-02-08] MEDS: GABAPENTIN 300 MG CAP PO SCH ×2 (10:06→22:02)
[2021-02-08] MEDS: CLOPIDOGREL 75 MG TABLET PO SCH (10:06)
[2021-02-08] MEDS: DOCUSATE NA 100 MG CAP PO SCH ×2 (10:06→22:02)
[2021-02-08] MEDS: predniSONE 20 MG TAB PO SCH ×2 (10:06→22:02)
[2021-02-08] MEDS: LIDOCAINE 4% PATCH TOP SCH (10:06)
[2021-02-08] MEDS: ENSURE ENLIVE 237 ML CAN PO SCH ×2 (10:07→21:00)
[2021-02-08] MEDS: RIVAROXABAN 10 MG TABLET PO SCH (10:10)
--- NOTE | 2021-02-08 10:51 | P.PN ---
Subjective Date of Service: 02/08/21 Chief Complaint: Rhabdomyolysis, Fall, AMS Patient failed voiding trial twice. She is tolerating physical therapy. She is able to stand with a walker. Physical Examination - Vital Signs Temperature: 97.7 F Blood Pressure: 129/61 Pulse: 81 Respirations: 20 Pulse Ox (%): 97 - Physical Exam General: Alert, In no apparent distress HEENT: Mucous membr. 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 Hypernatremia, leukocytosis, CPK, and renal function all resolved/improved with IVF. -initially voiding after gonzales removed without issue. Now with acute urinary retention. Gonzales catheter inserted and retained. repeat UA not concerning for UTI. -patient started on Flomax for urinary retention. -Gonzales catheter reinserted. Urology consulted -b/l leg pain - knees/hips - chronic, had hip x-ray 01/28 without acute findings. -lumbar MRI -Bulging disk material and spurring changes causing moderately severe right foraminal stenosis at L4-L5 and moderately severe left foraminal stenosis at L5-S1. No significant central spinal stenosis. Neurology consulted, patient with mild improvement with ibuprofen, switched to prednisone 02/03, started gabapentin 300mg 02/02 qHS, increased to 300 mg BID 02/04 -continue aspirin, statin. -continue PT and speech therapy VTE: xarelto prophylaxis Code: full Dispo: Awaiting long-term care placement.
[2021-02-08] MEDS: TAMSULOSIN 0.4 MG SR CAP PO SCH (22:02)
[2021-02-08] MEDS: ATORVASTATIN 40 MG TAB PO SCH (22:03)
[2021-02-09] MEDS: ACETAMINOPHEN 325 MG TABLET PO SCH ×4 (00:38→17:55)
[2021-02-09 06:00] LABS: BUN Blood Urea Nitrogen 12 mg/dL (7-18); Bicarbonate 27 mmol/L (21-32); Glucose Level 113 mg/dL (74-106); Magnesium 2.2 mg/dL (1.8-2.4); Potassium 4.2 mmol/L (3.5-5.1); Sodium Level 139 mmol/L (136-145)
[2021-02-09] MEDS: FOLIC ACID 1 MG TABLET PO SCH (10:12)
[2021-02-09] MEDS: CLOPIDOGREL 75 MG TABLET PO SCH (10:13)
[2021-02-09] MEDS: RIVAROXABAN 10 MG TABLET PO SCH (10:13)
[2021-02-09] MEDS: DOCUSATE NA 100 MG CAP PO SCH ×2 (10:13→21:49)
[2021-02-09] MEDS: GABAPENTIN 300 MG CAP PO SCH ×2 (10:13→21:49)
[2021-02-09] MEDS: predniSONE 20 MG TAB PO SCH ×2 (10:13→21:49)
[2021-02-09] MEDS: ENSURE ENLIVE 237 ML CAN PO SCH ×2 (10:15→21:00)
[2021-02-09] MEDS: LIDOCAINE 4% PATCH TOP SCH (10:20)
--- NOTE | 2021-02-09 18:31 | P.PN ---
Subjective Date of Service: 02/09/21 Chief Complaint: Rhabdomyolysis, Fall, AMS Patient has no complain today She is tolerating physical therapy. Physical Examination - Vital Signs Temperature: 97.5 F Blood Pressure: 121/65 Pulse: 77 Respirations: 14 Pulse Ox (%): 96 - Physical Exam General: Alert, In no apparent distress, Oriented x3 HEENT: Mucous membr. 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 Hypernatremia, leukocytosis, CPK, and renal function all resolved with IVF. -initially voiding after gonzales removed without issue. Now with acute urinary retention. Gonzales catheter inserted and retained. repeat UA not concerning for UTI. -patient started on Flomax for urinary retention. -failed voiding trial twice. Gonzales catheter reinserted. Urology consulted -b/l leg pain - knees/hips - chronic, had hip x-ray 01/28 without acute findings. -lumbar MRI -Bulging disk material and spurring changes causing moderately severe right foraminal stenosis at L4-L5 and moderately severe left foraminal stenosis at L5-S1. No significant central spinal stenosis. Neurology consulted, patient with mild improvement with ibuprofen, switched to prednisone 02/03, started gabapentin 300mg 02/02 qHS, increased to 300 mg BID 02/04 -continue aspirin, statin. -continue PT and speech therapy VTE: xarelto prophylaxis Code: full Dispo: Awaiting long-term care placement.
[2021-02-09] MEDS: TAMSULOSIN 0.4 MG SR CAP PO SCH (21:49)
[2021-02-09] MEDS: ATORVASTATIN 40 MG TAB PO SCH (21:49)
[2021-02-10] MEDS: ACETAMINOPHEN 325 MG TABLET PO SCH ×4 (00:50→18:55)
[2021-02-10] MEDS: RIVAROXABAN 10 MG TABLET PO SCH (08:09)
[2021-02-10] MEDS: ENSURE ENLIVE 237 ML CAN PO SCH ×2 (08:10→20:48)
[2021-02-10] MEDS: predniSONE 20 MG TAB PO SCH ×2 (08:10→20:49)
[2021-02-10] MEDS: DOCUSATE NA 100 MG CAP PO SCH ×2 (08:10→21:23)
[2021-02-10] MEDS: GABAPENTIN 300 MG CAP PO SCH ×2 (08:10→20:50)
[2021-02-10] MEDS: FOLIC ACID 1 MG TABLET PO SCH (08:10)
[2021-02-10] MEDS: CLOPIDOGREL 75 MG TABLET PO SCH (08:10)
[2021-02-10] MEDS: LIDOCAINE 4% PATCH TOP SCH (08:10)
--- NOTE | 2021-02-10 14:12 | P.PN ---
Subjective Date of Service: 02/10/21 Chief Complaint: Rhabdomyolysis, Fall, AMS Patient has no complain today No major changes from yesterday. Physical Examination - Vital Signs Temperature: 98 F Blood Pressure: 127/58 Pulse: 93 Respirations: 16 Pulse Ox (%): 95 - Physical Exam General: Alert, In no apparent distress, Oriented x3 HEENT: Mucous membr. 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 Gonzales catheter reinserted and maintained. Urology consulted -b/l leg pain - knees/hips - chronic, had hip x-ray 01/28 without acute findings. -lumbar MRI -Bulging disk material and spurring changes causing moderately severe right foraminal stenosis at L4-L5 and moderately severe left foraminal stenosis at L5-S1. No significant central spinal stenosis. Neurology consulted, patient with mild improvement with ibuprofen, switched to prednisone 02/03, started gabapentin 300mg 02/02 qHS, increased to 300 mg BID 02/04 -continue aspirin, statin. -continue PT and speech therapy VTE: xarelto prophylaxis Code: full Dispo: Awaiting long-term care placement.
[2021-02-10] MEDS: ATORVASTATIN 40 MG TAB PO SCH (20:49)
[2021-02-10] MEDS: TAMSULOSIN 0.4 MG SR CAP PO SCH (20:49)
[2021-02-11] MEDS: ACETAMINOPHEN 325 MG TABLET PO SCH ×4 (00:36→17:55)
[2021-02-11] MEDS: RIVAROXABAN 10 MG TABLET PO SCH (09:00)
[2021-02-11] MEDS: ENSURE ENLIVE 237 ML CAN PO SCH ×2 (09:00→20:36)
[2021-02-11] MEDS: GABAPENTIN 300 MG CAP PO SCH ×2 (09:20→20:36)
[2021-02-11] MEDS: FOLIC ACID 1 MG TABLET PO SCH (09:20)
[2021-02-11] MEDS: CLOPIDOGREL 75 MG TABLET PO SCH (09:20)
[2021-02-11] MEDS: DOCUSATE NA 100 MG CAP PO SCH ×2 (09:21→20:35)
[2021-02-11] MEDS: LIDOCAINE 4% PATCH TOP SCH (09:21)
[2021-02-11] MEDS: predniSONE 20 MG TAB PO SCH ×2 (09:21→20:36)
--- NOTE | 2021-02-11 11:08 | P.PN ---
Subjective Date of Service: 02/11/21 Chief Complaint: Rhabdomyolysis, Fall, AMS Patient complaining of leg pain not responding to Tylenol Physical Examination - Vital Signs Temperature: 97.5 F Blood Pressure: 123/67 Pulse: 75 Respirations: 16 Pulse Ox (%): 93 - Physical Exam General: Alert, In no apparent distress Neck: JVD not distended Respiratory: Clear to auscultation bilaterally, Normal air movement Cardiovascular: No edema, Regular rate/rhythm, Normal S1 S2 Gastrointestinal: Soft and benign, Non-distended Musculoskeletal: No swelling Integumentary: No rashes Neurological: Normal strength at 5/ x4 extr Assessment And Plan Physician Review Additional Text: unwitnessed fall at home Acute metabolic encephalopathy, resolved 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 -failed voiding trial twice. Gonzales catheter reinserted and maintained. Urology consulted -b/l leg pain - knees/hips - chronic, had hip x-ray 01/28 without acute findings. -lumbar MRI -Bulging disk material and spurring changes causing moderately severe right foraminal stenosis at L4-L5 and moderately severe left foraminal stenosis at L5-S1. No significant central spinal stenosis. Neurology consulted, patient with mild improvement with ibuprofen, switched to prednisone 02/03, started gabapentin 300mg 02/02 qHS, increased to 300 mg BID 02/04 -continue aspirin, statin. -tramadol p.r.n. for pain -continue PT and speech therapy VTE: xarelto prophylaxis Code: full Dispo: Awaiting long-term care placement.
[2021-02-11] MEDS: TRAMADOL HCL 50 MG TAB PO PRN ×2 (13:00→20:34)
[2021-02-11] MEDS: ATORVASTATIN 40 MG TAB PO SCH (20:35)
[2021-02-11] MEDS: TAMSULOSIN 0.4 MG SR CAP PO SCH (20:36)
[2021-02-12] MEDS: ACETAMINOPHEN 325 MG TABLET PO SCH ×4 (06:00→18:00)
[2021-02-12] MEDS: TRAMADOL HCL 50 MG TAB PO PRN ×3 (06:09→20:50)
[2021-02-12] MEDS: LIDOCAINE 4% PATCH TOP SCH (08:32)
[2021-02-12] MEDS: GABAPENTIN 300 MG CAP PO SCH ×2 (08:32→20:52)
[2021-02-12] MEDS: CLOPIDOGREL 75 MG TABLET PO SCH (08:32)
[2021-02-12] MEDS: RIVAROXABAN 10 MG TABLET PO SCH (08:32)
[2021-02-12] MEDS: FOLIC ACID 1 MG TABLET PO SCH (08:32)
[2021-02-12] MEDS: predniSONE 20 MG TAB PO SCH ×2 (08:32→20:52)
[2021-02-12] MEDS: DOCUSATE NA 100 MG CAP PO SCH ×2 (08:33→20:52)
[2021-02-12] MEDS: ENSURE ENLIVE 237 ML CAN PO SCH ×2 (09:00→20:52)
--- NOTE | 2021-02-12 13:15 | P.PN ---
Subjective Date of Service: 02/12/21 Chief Complaint: Rhabdomyolysis, Fall, AMS Patient has no complain today. Physical Examination - Vital Signs Temperature: 97.1 F Blood Pressure: 124/72 Pulse: 87 Respirations: 16 Pulse Ox (%): 94 - Physical Exam General: Alert, In no apparent distress, Oriented x3 Respiratory: Clear to auscultation bilaterally, Normal air movement Cardiovascular: No edema, Regular rate/rhythm, Normal S1 S2 Gastrointestinal: Soft and benign, Non-distended Musculoskeletal: No swelling Integumentary: No rashes, No breakdown Neurological: Normal strength at 5/ x4 extr Assessment And Plan Physician Review Additional Text: unwitnessed fall at home Acute metabolic encephalopathy, resolved 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 -failed voiding trial twice. Gonzales catheter reinserted and maintained. Urology consulted. -b/l leg pain - knees/hips - chronic, had hip x-ray 01/28 without acute findings. -lumbar MRI -Bulging disk material and spurring changes causing moderately severe right foraminal stenosis at L4-L5 and moderately severe left foraminal stenosis at L5-S1. No significant central spinal stenosis. Neurology consulted, patient with mild improvement with ibuprofen, switched to prednisone 02/03, started gabapentin 300mg 02/02 qHS, increased to 300 mg BID 02/04 -continue aspirin, statin. -tramadol p.r.n. for pain -continue PT and speech therapy VTE: xarelto prophylaxis Code: full Dispo: Awaiting long-term care placement.
[2021-02-12] MEDS: TAMSULOSIN 0.4 MG SR CAP PO SCH (20:51)
[2021-02-12] MEDS: ATORVASTATIN 40 MG TAB PO SCH (20:51)
[2021-02-13] MEDS: ACETAMINOPHEN 325 MG TABLET PO SCH ×4 (06:00→18:00)
[2021-02-13] MEDS: TRAMADOL HCL 50 MG TAB PO PRN ×3 (06:19→20:35)
[2021-02-13] MEDS: ENSURE ENLIVE 237 ML CAN PO SCH ×2 (09:00→20:36)
--- NOTE | 2021-02-13 10:03 | P.PN ---
Subjective Date of Service: 02/13/21 Chief Complaint: Rhabdomyolysis, Fall, AMS Subjective: No new changes (no new complaints, reports improvement in strength and pain) Review of Systems 10-point ROS is otherwise unremarkable Physical Examination - Vital Signs Temperature: 97.0 F Blood Pressure: 126/60 Pulse: 67 Respirations: 17 Pulse Ox (%): 95 Assessment & Plan Physician Review Additional Text: Physical Exam General: Alert, In no apparent distress, Oriented x3 Respiratory: Clear to auscultation bilaterally, Normal air movement Cardiovascular: No edema, Regular rate/rhythm, Normal S1 S2 Gastrointestinal: Soft and benign, Non-distended Musculoskeletal: No joint swelling Integumentary: No rashes, No breakdown Neurological: Normal strength at 5/5 x4 extr Problem List unwitnessed fall at home Acute metabolic encephalopathy, resolved 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 -failed voiding trial twice. Gonzales catheter reinserted and maintained. Urology consulted. -b/l leg pain - knees/hips - chronic, had hip x-ray 01/28 without acute findings. -lumbar MRI -Bulging disk material and spurring changes causing moderately severe right foraminal stenosis at L4-L5 and moderately severe left foraminal stenosis at L5-S1. No significant central spinal stenosis. Neurology consulted, patient with mild improvement with ibuprofen, switched to prednisone 02/03, started gabapentin 300mg 02/02 qHS, increased to 300 mg BID 02/04. patient's pain seems to be improving slowly over the last week -continue aspirin, statin. -tramadol p.r.n. for pain -continue PT and speech therapy VTE: Xarelto prophylaxis during hospitalization Code: full Dispo: Awaiting long-term care placement. Time Spent Managing Pts Care (In Minutes): 35
[2021-02-13] MEDS: RIVAROXABAN 10 MG TABLET PO SCH (10:55)
[2021-02-13] MEDS: CLOPIDOGREL 75 MG TABLET PO SCH (10:55)
[2021-02-13] MEDS: GABAPENTIN 300 MG CAP PO SCH ×2 (10:55→20:36)
[2021-02-13] MEDS: DOCUSATE NA 100 MG CAP PO SCH ×2 (10:55→20:36)
[2021-02-13] MEDS: FOLIC ACID 1 MG TABLET PO SCH (10:56)
[2021-02-13] MEDS: ATORVASTATIN 40 MG TAB PO SCH (10:56)
[2021-02-13] MEDS: LIDOCAINE 4% PATCH TOP SCH (10:57)
[2021-02-13] MEDS: predniSONE 20 MG TAB PO SCH ×2 (10:57→20:35)
--- NOTE | 2021-02-13 20:26 | CON ---
Date of Consult 02/12/21 Reason For Consultation: Failed voiding trial. History Of Present Illness: Ms. Khan is a 76-year-old woman, who suffered a cerebrovascular accident within the last 2 months with resultant left-sided weakness that she recollects resulted in her suffering a fall at home. She subsequently was admitted for medical management of her stroke and rehabilitation. A urethral Alexis catheter was inserted due to observed urinary retention, though the patient herself never noted any problems voiding. While the clinical notes would suggest she failed a voiding trial on at least 2 or 3 occasions, the patient suggests she only failed once and they only reinserted the catheter once. She underwent an MRI of the lumbar spine revealing L4-5 and L5-S1 stenosis, and a CT scan performed on 01/16/2021 had no acute abnormalities and no hydronephrosis. Similarly, urine culture on 01/16/2021 was unremarkable for infection and her creatinine was always within normal limits less than 1.0 at 0.46. Physical Examination: The patient was alert, awake, and oriented at least to person and place, in no acute distress. She had no dyspnea or signs of respiratory distress. She was lying in bed comfortably and moving her left upper extremity as well as the right upper extremity with ease without signs of residual weakness at least in the upper extremities. Urethral Alexis catheter was in place and draining clear yellow urine. Assessment And Recommendation: This is a 76-year-old woman with cerebrovascular accident with resultant left-sided weakness, that has improved over time, but subsequently failed voiding trial repetitively. I counseled the patient that given the stroke, the bladder can also be affected similarly as the nerve injury progresses and improves in time. Her ability to void may likewise improve in time, and so if it has been more than a couple of weeks since her last failed voiding trial, it would be reasonable to remove the Alexis catheter no later than 7 a.m. and give the patient no more than 6 hours to void before reinserting the catheter should she be unable to do so successfully. Should she successfully void, a bladder scan postvoid residual should be checked, and if she retains more urine than she voided, the catheter likewise should be replaced. A single dose of antimicrobial prophylaxis with Keflex or Bactrim would be reasonable; however, a catheter culture, not from the bag, should be taken prior to the catheter being removed if it has been in place for more than 2 weeks to define the ongoing colonization and bacteriuria currently present to ensure the antimicrobial choice will adequately clear the bacteriuria. Ultimately, should the patient continue to fail her voiding trial or if she has had a more recent voiding trial than the last 2 weeks, she should be discharged home with the catheter in place and follow up with me in the Urology Clinic where we will establish urodynamic evaluation and plan on a subsequent voiding trial. MARIELA/ARTHUR Voice ID: [id number] Report ID: [id number] MTDD
[2021-02-13] MEDS: TAMSULOSIN 0.4 MG SR CAP PO SCH (20:35)
[2021-02-14] MEDS: ACETAMINOPHEN 325 MG TABLET PO SCH ×3 (06:00→11:45)
[2021-02-14] MEDS: DOCUSATE NA 100 MG CAP PO SCH (08:46)
[2021-02-14] MEDS: predniSONE 20 MG TAB PO SCH (08:46)
[2021-02-14] MEDS: GABAPENTIN 300 MG CAP PO SCH (08:46)
[2021-02-14] MEDS: FOLIC ACID 1 MG TABLET PO SCH (08:47)
[2021-02-14] MEDS: CLOPIDOGREL 75 MG TABLET PO SCH (08:47)
[2021-02-14] MEDS: RIVAROXABAN 10 MG TABLET PO SCH (08:47)
[2021-02-14] MEDS: ENSURE ENLIVE 237 ML CAN PO SCH (08:48)
[2021-02-14] MEDS: LIDOCAINE 4% PATCH TOP SCH (08:48)
[2021-02-14] MEDS: TRAMADOL HCL 50 MG TAB PO PRN (08:49)
[2021-02-14 09:57] VITALS: O2SAT 96
--- NOTE | 2021-02-14 10:56 | P.PN ---
Subjective Date of Service: 02/14/21 Chief Complaint: Rhabdomyolysis, Fall, AMS Subjective: No new changes Review of Systems 10-point ROS is otherwise unremarkable Physical Examination - Vital Signs Temperature: 98 F Blood Pressure: 121/56 Pulse: 72 Respirations: 16 Pulse Ox (%): 95 Assessment & Plan Physician Review Additional Text: Physical Exam General: Alert, In no apparent distress, Oriented x3 Respiratory: Clear to auscultation bilaterally, Normal air movement Cardiovascular: No edema, Regular rate/rhythm, Normal S1 S2 Gastrointestinal: Soft and benign, Non-distended Musculoskeletal: No joint swelling Integumentary: No rashes, No breakdown Neurological: Normal strength at 5/5 x4 extr Problem List unwitnessed fall at home Acute metabolic encephalopathy, resolved prior subacute CVA with residual L sided weakness (face,LUE,LLE) Debility Rhabdomyolysis, resolved chronic b/l knee arthritis Hypernatremia, resolved Acute urinary retention, with gonzales in place moderately severe R foraminal stenosis L4-L5 moderately severe L foraminal stenosis L5-S1 -vitals stable. -failed voiding trial twice. Gonzales catheter reinserted and maintained. Last inserted on 02/06. Urology consulted - maintain gonzales catheter for now given recent failure -b/l leg pain - knees/hips - chronic, had hip x-ray 01/28 without acute findings. -lumbar MRI -Bulging disk material and spurring changes causing moderately severe right foraminal stenosis at L4-L5 and moderately severe left foraminal stenosis at L5-S1. No significant central spinal stenosis. Neurology consulted, patient with mild improvement with ibuprofen, switched to prednisone 02/03 BID and daily on 02/14, started gabapentin 300mg 02/02 qHS, increased to 300 mg BID 02/04. -pain improved, still taking tramadol PRN 1-2xday, will try to wean -continue aspirin, statin. -continue PT VTE: Xarelto prophylaxis during hospitalization Code: full Dispo: Awaiting long-term care placement. Patient is AAOx3, but with h/o CVA, some component of vascular dementia, patient does not appear to have very good / complete decision making capacity - mainly with financials Time Spent Managing Pts Care (In Minutes): 35
[2021-02-14 16:24] VITALS: BP 120/62; TEMP 98.6
--- NOTE | 2021-02-14 20:43 | P.DS ---
Admission Date: 01/16/21 Discharge Date: 02/14/21 Disposition: TRANSFER TO JAIL Discharge Condition: GOOD Reason for Admission: Rhabdomyolysis, Fall, AMS Consultations: Neurology - Dr. Odom Urology - Dr. Porras Procedures: CXR (01/16): The lungs appear clear of acute infiltrate. The heart is normal size IMPRESSION: No acute abnormalities displayed CT head/Cspine (01/16): FINDINGS: 5 centimeter low-density area within right temporal lobe has the appearance of an old infarction. An intracranial bleed is not seen. The ventricles are normal in caliber. An extra-axial fluid collection is not noted.Fluid within the visualized sinuses and mastoids is not seen The patient's head is tilted towards the right. Slight posterior subluxation C3 on C4. Spondylosis involves the mid distal cervical spine resulting marked right foraminal stenosis C3-4 and moderate foraminal stenosis at several additional levels. Mild central spinal stenosis A cervical fracture is not visualized. No dislocation is noted. IMPRESSION: No acute intracranial abnormality is seen. A cervical fracture is not visualized. Spondylosis. If the patient continues to have symptoms to suggest intracranial /spinal cord pathology then MRI would be recommended MRI brain (01/16): FINDINGS: No intracranial hemorrhage identified. Mild to moderate underlying atrophy changes are present. Ventricles are in proportion to any volume loss. Diffusion-weighted imaging shows hyperintense signal in the deep periventricular white matter posterior right frontal lobe. There is a extensive diffusion signal abnormality in the right parietal lobe from cortical margin to the deep periventricular white matter. Heterogeneous diffusion signal extends into the posterior aspect of the right temporal lobe. There is corresponding increased signal on ADC mapping. This subacute infarction pattern does not clearly demonstrate an acute component. Baseline chronic ischemic pattern for the patient is very minimal. There is no edema or shift of midline structures. No extra-axial fluid collections. Paulino-matter/white matter junction is preserved. Signal voids are seen as a normal finding in the major intracranial vessels. There are old infarction changes in the right parietal lobe as well. Post-contrast view show a serpiginous cortical enhancement pattern in the area of subacute infarction. This is expected pattern based on the provided history. Mastoid air cells and paranasal sinuses are clear. No sella or supra sella abnormality. IMPRESSION: Subacute and chronic nonhemorrhagic infarction changes involving the right cerebral hemisphere as detailed. No new acute component identified. No developing edema or mass effect. MRA brain (01/16): FINDINGS: Basilar artery shows no suspicious finding. Distal left vertebral artery is unremarkable. The right vertebral artery terminates at the posteroinferior cerebellar artery. Moderate severity atherosclerotic changes are present with luminal narrowing in the bilateral posterior cerebral artery distributions. Moderate severity left middle cerebral atherosclerotic changes are present. There is truncation of multiple M2 and M3 branches of the right middle cerebral artery. This would match with the areas of right cerebral hemisphere infarction. No significant anterior cerebral artery disease. The A1 segment of the right anterior cerebral artery is very small suspected to be normal variant. No significant distal Internal carotid abnormality. 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 This would match the large areas of infarction in the right middle cerebral artery distribution. No significant disease of the basilar artery or distal internal carotid arteries. MRA neck (01/16): FINDINGS: Aortic arch is 3 vessel configuration with no origins stenosis. Vertebral artery origins are poorly visualized due to motion artifact. Motion limits the proximal right common carotid artery assessment. Significant disease is doubtful. Left common carotid artery is unremarkable. The bilateral internal carotid arteries are mildly tortuous but show no significant disease. Left vertebral artery is dominant with the right vertebral artery terminating at the posteroinferior cerebellar artery. No acute vertebral finding. IMPRESSION: MRA neck examination as detailed shows no significant finding. CT chest/abd/pelvis (01/16): FINDINGS: Lungs are clear of mass and infiltrate. Subpleural scarring changes are present. No pleural effusion, pleural thickening or pneumothorax. No significant aortic or pulmonary arterial tree finding. Mediastinal and hilar regions show no mass or abnormal lymphadenopathy. No chest wall mass or axillary lymphadenopathy. The liver, spleen and pancreas show no suspicious findings. Gallbladder and biliary tree are unremarkable. Gallstones can be occult on CT imaging. Sy mmetric renal function is seen with no mass or hydronephrosis. No adrenal abnormalities. No urinary bladder acute finding. No dilated bowel loops or focal bowel wall thickening. No acute GI findings s een. Disc and bone degenerative changes are present. No acute fracture changes confirmed. No significant vascular findings. IMPRESSION: CT chest, abdomen and pelvis imaging shows no acute or emergent finding. KUB (01/21): Large stool volume is present filling but not dilating the colon from cecum the mid rectum level. This is slightly more prominent than the CT study though comparison between the 2 imaging modalities is limited. Small bowel dilatation is not identified. There is no free air or pneumatosis. No bowel obstruction. Stomach is normal size. No suspicious calcifications. Moderate severity L4-5 disc and endplate degenerative changes noted. IMPRESSION: Constipation pattern with a large stool volume filling but not dilating the colon from cecum to the mid rectum. Hip/Pelvis xray (01/28): FINDINGS: The bones are osteoporotic. No fracture or dislocation seen. Mild to moderate osteoarthritis involves the hips mainly consisting of joint space narrowing subchondral sclerosis MRI Lumbar spine (01/30): FINDINGS: Exam has motion degradation limitation. Multiple sequences had to be repeated. Lumbar bodies are normal in height and alignment. No suspicious marrow signal. No paraspinal masses. Chronic fatty marrow degenerative changes are present most notable in the L4 and L5 bodies. Conus is normal with no clumping or thickening of the cauda equina. T12-L1 level: No significant findings. L1-2 level: No significant findings. L2-3 level: Disc is desiccated without loss in disc height. Minimal bulging of disc material is present. No canal or foramen stenosis. L3-4 level: Disc is thinned and desiccated. Circumferential bulging of disc material is present. Posterior ligamentous thickening seen. Midline central canal is 15 mm. No significant left foraminal encroachment. Mild right foraminal stenosis present. Perineural fat still surrounds the exiting nerve roots. L4-5 level: Disc is thinned and desiccated. There significant degenerative change to the endplates. Circumferential disc bulge without herniation. Ligamentous thickening is present. Central canal is borderline stenotic at 10-11 mm. Disc bulge and endplate spurring changes cause mild left foraminal stenosis and moderately severe right foraminal stenosis. Very little perineural fat remains on the right. L5-S1 level: Disc is thinned and desiccated. No herniation or significant disc bulge. No right foraminal stenosis or central spinal stenosis. Disc bulge and endplate spurring changes are prominent left lateral aspect of the disc space. Moderately severe left foraminal stenosis is present. Post-contrast view show no abnormal vertebral body or disc enhancement. No cord or cauda equina abnormality seen. No suspicious enhancement in the central canal. IMPRESSION: Bulging disc material and endplate spurring changes cause moderately severe right foraminal stenosis L4-5 and moderately severe left foraminal stenosis at L5-S1. Degenerative change present throughout the mid and lower lumbar spine as detailed. There is no significant central spinal stenosis. No epidural abscess, mass or other emergent finding. Vertebral bodies show fatty marrow degenerative change but no marrow edema or replacing process. 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 Was brought in to ER today, found awake on floor at home. Friend has been trying to get a hold of patient since Friday with no luck. Friend called police for wel lfare check and patient was found on floor. Presumed to be on floor since Friday/Friday. Patient is oriented x3, however has some confusion and unable to recall events. She does not recall how she fell or can give specific details over the last 2-3 days. She reports pain in her knees (chronic) and neck. She denies any recent illness, no fever, no cough, no SOB, no dysuria, no diarrhea. She reports some constipation - no BM in ~3-4 days. She was reportedly discharged to rehab ~4-5 weeks ago, and signed herself out AMA due to being "bored". Patient appears dehydrated on exam. Bloodwork notable for leukocytosis and elevated hemoglobin (17.5, 15.7,respectively), Cr: 0.99, CPK: 1988, trop: 0.06, BNP 1361, Urine dip negative for infection, +blood, micro pending. CXR and CT chest/abd/pelvis rather unremarkable. CT head/c-spine notable for prior infarct. Hospital Course: Patient was initially empirically treated for UTI with IV antibiotics. She had improvement and eventual resolution of her altered mental status, hypernatremia, and mild rhabdo with IV fluids in addition to antibiotics. Urine culture was without growth, despite UA being grossly positive / concerning for UTI. She had significant debility and unable to care for herself safely at home. She had already recognized this prior to admission and her friend was helping her with the process for mcfp placement. Patient had urinary retention and failed voiding trial x2 during her hospitalization. The last voiding trial was on 02/06 and gonzales replaced that evening. Urology was consulted and recommended continuation of gonzlaes catheter and to f/u as outpatient in ~ 2 weeks post-discharge. Patient reported b/l lower back/flank pain - alternating sides at times, and b/l thigh pain. x-ray was negative for fracture. Patient underwent MRI lumbar spine given her persistence of pain and weakness, which patient initially attributed to why she was not participating with PT. This revealed moderately severe foraminal stenosis as noted above. This was discussed with Dr. Odom, neurology, who recommended slowly uptitrating gabapentin as tolerated / needed, and consideration for trial of steroids. Patient had improvement in her pain but not complete resolution. Prednisone 20mg BID started on 02/03 -> daily on 02/14, started gabapentin 300mg 02/02 qHS, increased to 300 mg BID 02/04. She would also occasionally receive PRN tramadol, but this was being weaned off. Due to her acute hospitalization and decreased mobility, patient was receiving DVT prophylaxis - initially with lovenox and transitioned to xarelto. This does not need to be continued upon discharge. She went several days without a BM and began to feel constipated. Imaging confirmed constipation and patient improved with laxatives and enemas. Patient was maintained on bowel regimen with stool softener and did not have recurrence. Vital Signs/Physical Exam: Physical Exam General: Alert, In no apparent distress, Oriented x3 Respiratory: Clear to auscultation bilaterally, Normal air movement Cardiovascular: No edema, Regular rate/rhythm, Normal S1 S2 Gastrointestinal: Soft and benign, Non-distended, non-tender Musculoskeletal: No joint swelling, mild TTP in b/l knees Integumentary: No rashes, No breakdown Temp Pulse Resp BP Pulse Ox 98.6 F 77 16 120/62 95 02/14/21 16:00 02/14/21 16:00 02/14/21 16:00 02/14/21 16:00 02/14/21 16:00 Laboratory Data at Discharge: WBC 9.40 K/uL (4.3-10.9) D 02/08/21 03:48 Hgb 10.5 g/dL (12.0-15.0) L 02/08/21 03:48 Hct 31.8 % (36.0-45.0) L 02/08/21 03:48 Plt Count 319 K/uL (152-406) 02/08/21 03:48 PT 11.6 SECONDS (9.5-12.5) 01/16/21 14:05 INR 1.01 01/16/21 14:05 Sodium 139 mmol/L (136-145) 02/09/21 05:14 Potassium 4.2 mmol/L (3.5-5.1) 02/09/21 05:14 BUN 12 mg/dL (7-18) 02/09/21 05:14 Creatinine 0.46 mg/dL (0.55-1.3) L 02/09/21 05:14 Glucose 113 mg/dL (74-106) H 02/09/21 05:14 Phosphorus 4.0 mg/dL (2.5-4.9) 01/29/21 03:37 Magnesium 2.2 mg/dL (1.8-2.4) 02/09/21 05:14 Total Bilirubin 0.4 mg/dL (0.2-1.0) 01/19/21 05:48 AST 59 U/L (15-37) H 01/19/21 05:48 ALT 29 U/L (12-78) 01/19/21 05:48 Alkaline Phosphatase 44 U/L (45-117) L 01/19/21 05:48 Home Medications: Aspirin [Low Dose Aspirin EC] 1 tab PO DAILY 01/16/21 Atorvastatin Calcium [Lipitor] 40 mg PO BEDTIME #0 tab 02/14/21 Clopidogrel Bisulfate [Plavix*] 75 mg PO DAILY #0 tablet 02/14/21 Docusate [Colace Cap*] 100 mg PO BID #0 cap 02/14/21 Ensure Enlive 237 ml PO BID can 02/14/21 Folic Acid 1 mg PO DAILY 30 Days #30 tablet 02/14/21 Gabapentin 300 mg PO BID 30 Days #60 capsule 02/14/21 Tamsulosin [Flomax*] 0.4 mg PO BEDTIME #0 cap 02/14/21 Tramadol HCl [Ultram] 50 mg PO Q8H PRN 4 Days #12 tablet 02/14/21 predniSONE [Prednisone*] 20 mg PO DAILY 7 Days #7 tab 02/14/21 New Medications: Tamsulosin [Flomax*] 0.4 mg PO BEDTIME #0 cap Folic Acid 1 mg PO DAILY 30 Days #30 tablet Gabapentin 300 mg PO BID 30 Days #60 capsule Tramadol HCl [Ultram] 50 mg PO Q8H PRN 4 Days #12 tablet PRN Reason: Pain Scale 8-10 (Severe) Physician Discharge Instructions: You were not found to have a new stroke. You did have some moderately severe stenosis in your lower back that may be contributing to your hip/thigh pain. You were also found to be very weak and debilitated. You are discharged to the long term to continue treatment and physical therapy. Your pain was treated with Gabapentin and a short course of steroids. You have 1 week more of steroid medication to take. You were found to have urinary retention and failed voiding trial twice. The most recent trial was on 02/06. Urology (Dr. Porras) was consulted and recommended follow up in his office in ~ 2 weeks. Diet: mechanical soft (chopped) and thin liquids Diet: [facility] soft Activity: Fall precautions Followup: NONE,NONE [Primary Care Provider] - Neri Porras [ACTIVE - CAN ADMIT] - Time spent managing pt's care (in minutes): 50
[2021-02-15] MEDS ORDERED: predniSONE 20 MG TAB PO SCH (09:00)
== END 2021-02-14 17:19 | DRG 557 ==
LOC: ER 10:59 → ERHOLD 16:04 → 2ND 21:36
PROVIDERS: ADMIT Hospitalist; ATTEND Hospitalist
DX: M62.82 Rhabdomyolysis (principal); G93.41 Metabolic encephalopathy; I69.354 Hemiplegia and hemiparesis following cerebral infarction affecting left non-dominant side; E87.0 Hyperosmolality and hypernatremia; N39.0 Urinary tract infection, site not specified; M13.862 Other specified arthritis, left knee; M13.861 Other specified arthritis, right knee; R33.9 Retention of urine, unspecified; M48.07 Spinal stenosis, lumbosacral region; E86.0 Dehydration; R54 Age-related physical debility; Z20.822 Contact with and (suspected) exposure to COVID-19
CPT/HCPCS: 36415; 70450; 70544; 70549; 70553; 71045; 71260; 72125; 72158; 73521; 74018; 74177; 80048; 80053; 80076; 81003; 81015; 82550; 82565; 82947; 83605; 83735; 83880; 84100; 84132; 84145; 84439; 84443; 84484; 85025; 85027; 85610; 87086; 87088; 92610; 94760; 96360; 97110; 97112; 97116; 97163; 97530; 99285; A9577; J1650; J2405; J3475; J7030; J7040; J7050; J7512; J9173; Q9967; U0003

== ENCOUNTER 2023-02-04 09:33 | Emergency (ER) | payer OTHER ==
--- OUTSIDE RECORDS SUMMARY | 2023-02-04 09:43 | XMS REPORT | Continuity of Care Document ---
:1945 Author Organization [facility] t Address [address] [place] [address] Care Team Providers Name Role Phone Huyen Beaver Attending Clinician Unavailable SAMIRA KAHN APRN Attending Clinician Unavailable Problems Condition Condition Condition Status Onset Resolution Last Treating Co mments Source Name Details Category Date Date Treatment Clinician Date Palpitatio Palpitatio Problem Active U T n n Physici ans History of History of Problem Resolve [facility] arthritis arthritis d Phys ici ans Acute Acute Problem Active [facility] right MCA right MCA Phys ici stroke stroke ans Essential Essential Problem Active [facility] (primary) (primary) Phys ici hypertensi hypertensi an s on on Depression Depression Problem Active U T screen screen Physici ans Encounter Encounter Problem Active UT for for Physici screening screening ans examinatio examinatio n for n for other other mental mental health and health and behavioral behavioral disorders disorders Primary Primary Problem Active 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 - [facility] involving involving St multiple multiple [facility] joints joints [facility] [place] Bilateral Bilateral Problem Active Com mon primary primary Spirit osteoarthr osteoarthr - [facility] itis of itis of St knee knee [facility] Dupuytren' Dupuytren' Problem Active C ommon s s Spirit contractur contractur - [facility] e of left e of left St hand hand [facility] Arthritis Arthritis Problem Active Com mon Spirit - [facility] Cigarette Cigarette Diagnosis Active C ommon nicotine nicotine Spirit dependence dependence - [facility] without without St complicati complicati Felicita kes on on [facility] Seasonal Seasonal Problem Active Commo n allergic allergic Spirit rhinitis, rhinitis, - CH I unspecifie unspecifie St d trigger d [facility] Blood Blood Diagnosis Active Common tests for tests for Spir it routine routine - [facility] general general St physical physical [facility] examinatio examinatio Me dical n n Center Breast Breast Diagnosis Active Common screening screening Spir it declined declined - [facility] Pneumococc Pneumococc Diagnosis Active Common al al Spirit vaccinatio vaccinatio - [facility] n declined n declined [facility] Tobacco Tobacco Diagnosis Active Commo n abuse abuse [facility] Allergies, Adverse Reactions, Alerts Allergy Allergy Status Severity Reaction(s) Onset Inactive Treating Comm ents Source Name Type Date Date Clinician Penicill Allergy Active UT ins to drug Physici (finding ans ) penicill Adverse Active rash/hives Com mon in Reaction [facility] Medications Ordered Filled Start Stop Current Ordering Indication Dosage Frequency Signature Comments Components Source Medication Medication Date Date Medication? Clinician (SIG) Name Name Atorvastati Atorvastati Yes TAKE 1 [facility] n Calcium n Calcium 4-19 TABLET BY Physici 80 MG Oral 80 MG Oral 00:00: MOUTH AT ans Tablet Tablet 00 BEDTIME Aspirin 81 Aspirin 81 Yes TAKE ONE UT MG Oral MG Oral 4-19 TABLET BY Phys ici Tablet Tablet 00:00: MOUTH ans Delayed Delayed 00 DAILY Release Release Vicodin Vicodin Yes Na Beaver 1 tablet Co mmon as needed [facility] Vital Signs Vital Name Observation Time Observation Value Comments Source Body height 2020-12-25 10:22:00 66 [in_us] [facility] Weight 2020-12-25 10:22:00 149 [lb_av] [facility] Body mass index 2020-12-25 10:22:00 24.05 kg/m2 [facility] (BMI) [Ratio] Body temperature 2020-12-25 10:22:00 97.2 [degF] Method: [facility] Temporal Heart Rate 2020-12-25 10:22:00 64 /min [facility] Respiratory rate 2020-12-25 10:22:00 18 /min [facility] O2 SAT 2020-12-25 10:22:00 99 % [facility] Systolic blood 2020-12-25 10:22:00 129 mm[Hg] Location: LUE; [facility] pressure Position: Sitting Diastolic blood 2020-12-25 10:22:00 78 mm[Hg] Location: LUE; [facility] pressure Position: Sitting Procedures Procedure Date / Time Performed Performing Clinician Sour e [N] 30 Day Event Monitor 2020-12-26 00:00:00 [place] [facility] Recording Plan of Care Planned Activity Planned Date Details Comments Source Diagnostic Test 2020-12-26 00:00:00 [N] 30 Day Event [facility] Pending Monitor Recording [code = [N] 30 Day Event Monitor Recording] Encounters Start End Encounter Admission Attending Care Care Encounter Source Date/Time Date/Time Type Type Clinicians Facility Department ID 2021-10-03 Outpatient Beaver, Na STLMLC STLMLC [id number] 2 Common 13:20:12 [id number] [facility] 2021-10-03 Outpatient Beaver, Na STLMLC STLMLC [id number] 2 Common 13:14:57 [id number] [facility] 2021-10-03 Outpatient Beaver, Na STLMLC STLMLC [id number] 2 Common 11:00:09 [id number] [facility] 2020-12-25 2020-12-25 AppointONELIA Sin [facility] - [id number] [place] 10:30:00 10:30:00 t; SAMIRA KAHN [place] [facility] 2019-08-24 2019-08-24 [facility] [id number] Common 11:00:00 11:00:[address] [facility] 2019-08-16 2019-08-16 [facility] [id number] Common 16:37:00 16:37:[address] [facility] 2019-05-25 2019-05-25 [facility] [id number] Common 10:20:00 10:20:[address] [facility] Results This patient has no known results.
--- NOTE | 2023-02-04 11:03 | RAD REPORT ---
EXAM DESCRIPTION: CT - Head Brain Wo Cont - 02/04/2023 10:30 am CLINICAL HISTORY: CONFUSED COMPARISON: Brain W/Wo Cont dated 01/16/2021 TECHNIQUE: Noncontrast head CT images ad were obtained without IV contrast. Multiplanar reformats we re generated and reviewed. All CT scans are performed using dose optimization technique as appropriate and may include automated exposure control or mA/KV adjustment according to patient size. FINDINGS: No intracranial hemorrhage, mass, or edema. Midline structures are unremarkable. Moderate diffuse parenchymal volume loss. Stable ventricular caliber. Stable right posterior parietal/temporal region of encephalomalacia, suggestive of sequelae of remote ischemia. Paulino-white matter differentiation is preserved, without evidence of acute infarct. No abnormal extra- axial fluid collections. Mastoid air cells and visualized portions of the paranasal sinuses are clear. No acute bony findings. IMPRESSION: No evidence of an acute intracranial process. Stable chronic findings as above.
--- NOTE | 2023-02-04 11:07 | RAD REPORT ---
EXAM DESCRIPTION: RADChest Single View02/04/2023 10:09 am CLINICAL HISTORY: CHEST PAIN COMPARISON: Abdomen 1 View (KUB) dated 01/21/2021; Chest Single View dated 01/16/2021 TECHNIQUE: Portable AP view of the chest. FINDINGS: The lungs are clear. Decreased inspiratory effort somewhat limits evaluation. No pneumoth orax or effusion. The cardiomediastinal contours are unremarkable. IMPRESSION: No acute cardiopulmonary process.
[2023-02-04 11:41] LABS: Absolute Lymphocytes (CBC) 1.4 K/uL (0.7-4.9); Lymphocytes % 16.6 % (15.3-44.8); MPV 8.6 fL (7.6-11.3); RBC Red Blood Cell Count 3.63 M/uL (3.86-4.86)
[2023-02-04 12:00] LABS: Albumin 3.6 g/dL (3.4-5.0); Bilirubin Total 0.2 mg/dL (0.2-1.0); Protein, Total 7.4 g/dL (6.4-8.2)
--- NOTE | 2023-02-04 12:21 | EDPHYS ---
Physician Documentation [facility] Name: Nasir Khan Age: 78 yrs Sex: Female : 1945 Arrival Date: 02/04/2023 Time: 09:33 Bed IW1 Private MD: ED Physician Haresh Rousseau HPI: 02/04 09:57 This 78 yrs old Female presents to ER via Unassigned with complaints of bs3 Abnormal Lab Results. 09:57 78-year-old female brought in by EMS for report of abnormal labs patient does not know bs3 why she is here she states to ask EMS or the nurse she states that she came from the [place] [facility] she denies any current medical problems but she states that she takes medications which she does not know what she takes history is limited secondary to patient's mental status but she denies current complaints. Historical: - Allergies: 10:07 PENICILLINS; hb - PMHx: 10:07 CVA; Dysphagia; Hypertension; hb - Immunization history:: Adult Immunizations up to date. - Social history:: Smoking status: . ROS: 09:57 Constitutional: Negative for fever, chills bs3 09:57 All other systems are negative. Exam: 09:57 Constitutional: Appears frail but in no acute distress Head/Face: Normocephalic, bs3 atraumatic. Eyes: Pupils equal round and reactive to light, extra-ocular motions intact. Lids and lashes normal. ENT: mmm, no posterior phyarngeal erythema Neck: Trachea midline, no thyromegaly, no neck stiffness Chest/axilla: Normal chest wall appearance and motion. Nontender with no deformity. No lesions are appreciated. Cardiovascular: Regular rate and rhythm with a normal S1 and S2. symmetric pulses in upper extremities Respiratory: Lungs have equal breath sounds bilaterally, clear to auscultation, no respiratory distress Abdomen/GI: Soft, non-tender, no rebound or guarding Female : She has a Alexis in place MS/ Extremity: Pulses equal, no cyanosis. Neurovascular intact. Full, normal range of motion. Neuro: Alert and oriented times person place but not time or exact situation Vital Signs: 10:07 BP 148 / 70; Pulse 88; Resp 16; Temp 97.9; Pulse Ox 98% on R/A; hb MDM: 09:44 Patient medically screened. bs3 09:57 Data reviewed: vital signs, nurses notes. ED course: Patient here for possibly abnormal bs3 labs I discussed with nursing triage who reports that patient may have come from home for low hemoglobin of 6.9 will check hemoglobin will reassess if low hemoglobin we will do rectal exam to evaluate for GI bleed and evaluate for further etiology. 12:17 ED course: Labs were performed and negative for acute pathology her hemoglobin was bs3 improved from her outpatient lab I discussed this with Og who noted that previous to the 6.9 it was around 8 so it is even improved from that advised outpatient follow-up return precautions given. 02/04 09:55 Order name: CBC with Diff; Complete Time: 12:10 bs3 02/04 09:55 Order name: Comprehensive Metabolic Panel; Complete Time: 12:10 bs3 02/04 09:55 Order name: Type And Screen; Complete Time: 12:19 bs3 02/04 09:56 Order name: Troponin High Sensitivity; Complete Time: 12:10 bs3 02/04 09:56 Order name: CK; Complete Time: 12:10 bs3 02/04 09:56 Order name: BNP; Complete Time: 12:10 bs3 02/04 09:55 Order name: XRAY Chest (1 view); Complete Time: 11:11 bs3 02/04 09:56 Order name: CT Head Brain wo Cont; Complete Time: 11:11 bs3 02/04 09:55 Order name: EKG - Nurse/Tech; Complete Time: 11:31 bs3 Administered Medications: No medications were administered Disposition Summary: 02/04/23 12:21 Discharge Ordered Location: Home bs3 Problem: new bs3 Symptoms: have improved bs3 Condition: Stable bs3 Diagnosis - Anemia, unspecified bs3 Followup: bs3 - With: Private Physician - When: 2 - 3 days - Reason: Re-evaluation by your physician Discharge Instructions: - Discharge Summary Sheet bs3 - Anemia bs3 Forms: - Medication Reconciliation Form bs3 - Thank You Letter bs3 - Antibiotic Education bs3 - Prescription Opioid Use bs3 Signatures: Dispatcher [employer] Melody May RN RN hb Stein, Brandon, MD MD bs3
--- NOTE | 2023-02-04 12:21 | ER ---
Nurse's Notes [facility] Name: Nasir Khan Age: 78 yrs Sex: Female : 1945 Arrival Date: 02/04/2023 Time: 09:33 Bed IW1 Private MD: Diagnosis: Anemia, unspecified Presentation: 02/04 10:06 Chief complaint: EMS states: Sent by PCP for HGB 6.9. Pt has no complaints at this hb time. Coronavirus screen: At this time, the client does not indicate any symptoms associated with coronavirus-19. Ebola Screen: No symptoms or risks identified at this time. Initial Sepsis Screen: Does the patient meet any 2 criteria? No. Patient's initial sepsis screen is negative. Does the patient have a suspected source of infection? No. Patient's initial sepsis screen is negative. Risk Assessment: Do you want to hurt yourself or someone else? Patient reports no desire to harm self or others. Onset of symptoms was February 04, 2023. 10:06 Method Of Arrival: EMS: [facility] hb 10:06 Acuity: MACK 3 hb Historical: - Allergies: 10:07 PENICILLINS; hb - PMHx: 10:07 CVA; Dysphagia; Hypertension; hb - Immunization history:: Adult Immunizations up to date. - Social history:: Smoking status: . Assessment: 12:16 Reassessment: Pt is from [place]. hb 12:34 Reassessment: Report called to Selina MICHELLE at [place], sending transport. hb Vital Signs: 10:07 BP 148 / 70; Pulse 88; Resp 16; Temp 97.9; Pulse Ox 98% on R/A; hb ED Course: 09:36 Patient arrived in ED. am2 09:44 Haresh Rousseau MD is Attending Physician. bs3 10:07 Triage completed. hb 10:07 Arm band placed on. hb 10:11 XRAY Chest (1 view) In Process Unspecified. EDMS 10:23 CT Head Brain wo Cont In Process Unspecified. EDMS Administered Medications: No medications were administered Outcome: 12:21 Discharge ordered by . bs3 13:40 Patient left the ED. hb Signatures: Dispatcher [employer] EDMS Melody Irene RN RN Violeta Ely am2 Rousseau, Haresh, MD MD bs3
[2023-02-04 13:49] VITALS: BP 148/70; TEMP 97.9; O2SAT 98
--- NOTE | 2023-02-05 14:39 | EKG ---
Test Date: 2023-02-04 Test Time: 10:51:20 Meeting Manager: JESSE MEASUREMENT RESULTS: Intervals: Rate: 77 MA: 176 QRSD: 74 QT: 370 QTc: 418 Mott: P: 70 MA: 176 QRS: 58 T: 49 INTERPRETIVE STATEMENTS: Normal sinus rhythm Normal ECG Compared to ECG 01/16/2021 12:48:58 Atrial abnormality no longer present ST (T wave) deviation no longer present Possible ischemia no longer present Electronically Signed On 02-05-23 14:37:17 CDT by Dejuan Leung
== END 2023-02-04 13:40 | disposition home or self-care (01) ==
LOC: ER 09:33
DX: D64.9 Anemia, unspecified (principal); I10 Essential (primary) hypertension; Z88.0 Allergy status to penicillin
CPT/HCPCS: 36415; 70450; 71045; 80053; 82550; 83880; 84484; 85025; 86850; 86900; 86901; 93005; 99283